=== PATIENT | male | born 1960 | race Caucasian/White ===

== ENCOUNTER → 2016-12-02 | Outpatient (CLI) | payer OTHER ==
[2015-09-21 13:00] VITALS: BP 124/75
[~2016-12-02] MED LIST: ALLO300T PO; COLC0.6T34 PO; CYCL10TA2 PO; ESCI10TA PO; HYDR-2672 PO; LOSA1TAB17 PO; NAPR375T3 PO
[2016-12-02 12:03] LABS: BASO # 0.1 x10^3/uL (0.0-0.2); BASO % 1 % (0-3); EOS % 2 % (0-3); HEMATOCRIT 48.5 % (39.0-53.0); HEMOGLOBIN 16.5 g/dL (13.0-17.5); LYMPH # 3.4 x10^3/uL (1.0-4.8); LYMPH % 39 % (24-48); MEAN CORPUSCULAR HEMOGLOBIN 31 pg (25-35); MEAN CORPUSCULAR HGB CONC 34 g/dL (31-37); MEAN CORPUSCULAR VOLUME 91 fL (79-100); MONO % 8 % (0-9); NEUT % 50 % (31-73); PLATELET COUNT 278 x10^3/uL (140-400); RED BLOOD COUNT 5.32 x10^6/uL (4.30-5.70); RED CELL DISTRIBUTION WIDTH 13.1 % (11.5-14.5); WHITE BLOOD COUNT 8.7 x10^3/uL (4.0-11.0)
[2016-12-02 12:18] LABS: ALBUMIN 3.9 g/dL (3.4-5.0); ALBUMIN/GLOBULIN RATIO 1.1 (1.0-1.7); CALCIUM 9.1 mg/dL (8.5-10.1); CREATININE 0.9 mg/dL (0.7-1.3); GFR 87.6; TOTAL BILIRUBIN 0.6 mg/dL (0.2-1.0); TOTAL PROTEIN 7.5 g/dL (6.4-8.2)
== END | disposition home or self-care (01) ==
LOC: LAB 11:36
PROVIDERS: ATTEND Internal Medicine
DX: I10 Essential (primary) hypertension (principal); F32.2 Major depressive disorder, single episode, severe without psychotic features; E78.5 Hyperlipidemia, unspecified
CPT/HCPCS: 36415; 80053; 80061; 84443; 85027; G0103

== ENCOUNTER → 2017-02-10 | Outpatient (CLI) | payer OTHER ==
[2015-09-21 13:00] VITALS: BP 124/75
--- NOTE | 2017-02-10 13:07 | RAD ---
Chest, 2 views, 02/10/2017: History: Dyspnea on exertion Comparison is made to a study from 08/15/2015. The heart size and pulmonary vascularity are normal. There is mild tortuosity of the thoracic aorta. No pulmonary infiltrates are seen. There is no evidence of pleural fluid. Minimal spurring is present in the spine. IMPRESSION: No acute cardiopulmonary abnormality is detected.
[2017-02-10 23:13] LABS: RHEUMATOID FACTOR <10.0 IU/mL (0.0-13.9)
== END | disposition home or self-care (01) ==
LOC: LAB 12:44
PROVIDERS: ATTEND Nurse Practitioner Adult Health
DX: R06.09 Other forms of dyspnea (principal)
CPT/HCPCS: 36415; 71020; 85651; 86431

== ENCOUNTER → 2017-05-05 | Outpatient (CLI) | payer OTHER ==
[2015-09-21 13:00] VITALS: BP 124/75
[~2017-05-05] MED LIST changes: -ESCI10TA PO; +ESCITALOPRAM OX10 MG PO; -HYDR-2672 PO; +HYDR-2766 PO
--- NOTE | 2017-05-05 14:12 | CARD ---
APPROVED REPORT PROCEDURE The patient underwent an Exercise Stress Test using the Mundo Protocol. Blood pressure, heart rate, a nd EKG were monitored. An Echocardiogram was performed by optical coating technician in four stages in quad fashion. At peak stress four se lected images were obtained and placed side by side with resting images for comparison. STRESS ECHO FINDINGS The resting Echocardiogram showed normal left ventricular contractility with an estimated Ejection Fr action of about 55 %. Normal augmentation of myocardial wall segments using a 16 segment model. Test Type: Exercise Stress Nurse/Tech: Malathi Pulido R.N. Test Indications: RAMIREZ Cardiac History and Allergies: SEE EMR Medications: SEE EMR Medical History: SEE EMR Resting ECG: SR Resting Heart Rate: 70 bpm Resting Blood Pressure: 141/84mmHg Pretest Chest Pain: No chest pain Nurse/Tech Notes S1S2, lungs CTA, denied chest pain or SOA. Consent: The procedure was explained to the patient in lay terms. Informed consent was witnessed. Ben eout was entered into [employer]. History and Stress Test performed by Malathi Pulido R.N. Stress Symptoms Extremely SOA at 3 minute john. POST EXERCISE Reason for Termination: Reached target heart rate Target HR: 140 Max HR: 145 bpm 88% of Maximum Predicted HR: 165 bpm Exercise duration: 4:05 min:sec, 2 Stage Exercise capacity: 7.0METs Max Blood Pressure: 175/63mmHg Blood Pressure response to exercise: Normal blood pressure response during stress. Heart Rate response to exercise: Normal Chest Pain: No. Arrhythmia: No. ST Change: No. INTERPRETATION Stress EKG Conclusion: Pt became extremely SOA at the 3 minute john. Reached target HR of 140 but was unable to maintain for longer than a minute or to continue to reach max HR of 165. Denied chest pain . Was slightly dizzy during recovery phase. The resting EKG showed a sinus rhythm with slight nonspecific ST segment changes. The stress EKG showed no significant change from baseline. No EKG evidence of stress-induced ischemia. <Conclusion> Limited exercise tolerance. No chest pain with exertion. No EKG evidence of stress-induced ischemia. Normal LV systolic function at rest. Normal left ventricular response to exertion with no regional wall motion abnormalities. No echocardiographic suggestion of stress-induced ischemia. Moderately low risk treadmill echo stress test with no EKG evidence of ischemia, normal LV function a t rest and with exertion but limited exercise tolerance secondary to shortness of breath.
== END | disposition home or self-care (01) ==
LOC: ECHO 11:51
PROVIDERS: ATTEND Internal Medicine Pulmonary Disease
DX: R06.02 Shortness of breath (principal)
CPT/HCPCS: 93017; 93350

== ENCOUNTER 2017-05-11 04:47 | Observation (INO) | payer OTHER ==
[~2017-05-11] VITALS: Ht 182.9 cm; Wt 125.6 kg
[2017-05-11] VITALS (16 sets, daily range): BP systolic 74–133; BP diastolic 46–88
--- NOTE | 2017-05-11 05:04 | PHYS DOC ---
Past Medical History Past Medical History: Hypertension, Other Additional Past Medical Histor: gout Past Surgical History: Other Additional Past Surgical Histo: stomach tumor/surgery Alcohol Use: None Drug Use: None Adult General Chief Complaint Chief Complaint: CHEST PAIN HPI HPI Patient is a 56 year old male who presents with who presents with left-sided chest pain for the past day and a half that has progressively gotten worse. Patient states that a week ago his stress test that was unremarkable. Pt states the chest pain is not exertional. Patient states the pain as a heaviness that radiates to the left shoulder. Patient denies any shortness of breath. Patient denies any nausea/vomiting/diarrhea. Patient denies any fevers. Patient is no other complaints. Review of Systems Review of Systems GEN: Denies fevers, chills, sweats HEENT: Denies blurred vision, sore throat CV: chest pain RESP: Denies shortness of air, cough GI: Denies n/v/d NEURO: Denies confusion, dizziness MSK: Denies weakness, joint pain/swelling Current Medications Current Medications Current Medications Medications (Trade) Dose Ordered Sig/Madhavi Start Time Stop Time Status Last Admin Dose Admin Aspirin (Children'S Aspirin) 324 mg 1X ONCE 05/11/17 05:15 05/11/17 05:16 DC 05/11/17 05:07 324 MG Info (Do NOT chart on this entry -- for MONITORING) 1 each PRN DAILY PRN 05/11/17 05:30 05/13/17 05:29 Iohexol (Omnipaque 300 Mg/ml) 75 ml 1X ONCE 05/11/17 05:30 05/11/17 05:31 DC 05/11/17 05:50 75 ML Nitroglycerin (Nitrostat) 0.4 mg PRN Q5MIN PRN 05/11/17 05:15 05/11/17 05:24 0.4 MG Allergies Allergies Allergies Coded Allergies Type Severity Reaction Last Updated Verified No Known Drug Allergies 08/15/15 No Physical Exam Physical Exam GEN.: No apparent distress. Alert and oriented. HEENT: Head is normocephalic, atraumatic NECK: Supple. LUNGS: CTAB. HEART: RRR, S1, S2 present. Peripheral pulses intact ABDOMEN: Soft, nontender. Positive bowel sounds. EXTREMITIES: Without any cyanosis. NEUROLOGIC: Normal speech, normal tone PSYCHIATRIC: Normal affect, normal mood. SKIN: No ulcerations Current Patient Data Vital Signs Vital Signs Date Time Temp Pulse Resp B/P (MAP) Pulse Ox O2 Delivery O2 Flow Rate FiO2 05/11/17 05:24 64 121/75 05/11/17 04:50 97.5 20 96 Room Air 97.5 Lab Values Laboratory Tests Test 05/11/17 05:00 White Blood Count 7.5 x10^3/uL (4.0-11.0) Red Blood Count 5.07 x10^6/uL (4.30-5.70) Hemoglobin 16.1 g/dL (13.0-17.5) Hematocrit 45.0 % (39.0-53.0) Mean Corpuscular Volume 89 fL (79-100) Mean Corpuscular Hemoglobin 32 pg (25-35) Mean Corpuscular Hemoglobin Concent 36 g/dL (31-37) Red Cell Distribution Width 13.5 % (11.5-14.5) Platelet Count 280 x10^3/uL (140-400) Neutrophils (%) (Auto) 40 % (31-73) Lymphocytes (%) (Auto) 46 % (24-48) Monocytes (%) (Auto) 10 % (0-9) H Eosinophils (%) (Auto) 3 % (0-3) Basophils (%) (Auto) 1 % (0-3) Neutrophils # (Auto) 3.0 x10^3uL (1.8-7.7) Lymphocytes # (Auto) 3.4 x10^3/uL (1.0-4.8) Monocytes # (Auto) 0.7 x10^3/uL (0.0-1.1) Eosinophils # (Auto) 0.2 x10^3/uL (0.0-0.7) Basophils # (Auto) 0.1 x10^3/uL (0.0-0.2) Sodium Level 140 mmol/L (136-145) Potassium Level 4.1 mmol/L (3.5-5.1) Chloride Level 102 mmol/L (98-107) Carbon Dioxide Level 28 mmol/L (21-32) Anion Gap 10 (6-14) Blood Urea Nitrogen 16 mg/dL (8-26) Creatinine 0.9 mg/dL (0.7-1.3) Estimated GFR (Cockcroft-Gault) 87.6 BUN/Creatinine Ratio 18 (6-20) Glucose Level 127 mg/dL (70-99) H Calcium Level 8.8 mg/dL (8.5-10.1) Total Bilirubin 0.4 mg/dL (0.2-1.0) Aspartate Amino Transferase (AST) 14 U/L (15-37) L Alanine Aminotransferase (ALT) 31 U/L (16-63) Alkaline Phosphatase 78 U/L (46-116) Troponin I Quantitative < 0.017 ng/mL (0.000-0.055) Total Protein 7.4 g/dL (6.4-8.2) Albumin 3.7 g/dL (3.4-5.0) Albumin/Globulin Ratio 1.0 (1.0-1.7) Laboratory Tests 05/11/17 05:00 Laboratory Tests 05/11/17 05:00 EKG EKG 0458: EKG shows normal sinus rhythm rate of 63 no STEMI 0550: EKG shows normal sinus rhythm rate of 59 no STEMI [] Radiology/Procedures Radiology/Procedures CXR NAD[] Course & Med Decision Making Course & Med Decision Making Pertinent Labs and Imaging studies reviewed. (See chart for details) ED course: Patient was seen and examined in the emergency room upon arrival a cardiac workup and a CT angiogram of the chest was ordered 0557: On reexamination the patient is still having some left-sided chest pain 0612: Discussed CC/HP/PMH with Dr. Cunningham and recommends admit [] MDM: After reviewing the chart, CC/HPI/PMH, physical exam, [lab results], [ radiological results], I do not believe the patient having a STEMI, PE, thoracic aortic dissection. On reevaluation the patient still having left-sided chest heaviness and pressure therefore we'll admit the patient for cardiac observation. [] Dragon Disclaimer Dragon Disclaimer This electronic medical record was generated, in whole or in part, using a voice recognition dictation system. Departure Departure Impression: Primary Impression: Chest pain Disposition: ADMITTED INPATIENT Admitting Physician: Other (Dr. Cunningham) Condition: STABLE Referrals: MATTHEW TODD MD (PCP) Problem Qualifiers Primary Impression: Chest pain Chest pain type: unspecified Qualified Codes: R07.9 - Chest pain, unspecified JASON DAMON DO May 11, 2017 05:04
[2017-05-11 05:12] LABS: BASO # 0.1 x10^3/uL (0.0-0.2); BASO % 1 % (0-3); EOS % 3 % (0-3); HEMOGLOBIN 16.1 g/dL (13.0-17.5); LYMPH # 3.4 x10^3/uL (1.0-4.8); LYMPH % 46 % (24-48); MEAN CORPUSCULAR HEMOGLOBIN 32 pg (25-35); MEAN CORPUSCULAR HGB CONC 36 g/dL (31-37); MEAN CORPUSCULAR VOLUME 89 fL (79-100); MONO % 10 % (0-9); NEUT % 40 % (31-73); PLATELET COUNT 280 x10^3/uL (140-400); RED BLOOD COUNT 5.07 x10^6/uL (4.30-5.70); RED CELL DISTRIBUTION WIDTH 13.5 % (11.5-14.5); WHITE BLOOD COUNT 7.5 x10^3/uL (4.0-11.0)
[2017-05-11] MEDS ORDERED: ASPIRIN CHEWABLE 81 MG TABLET. PO ONE (05:15)
[2017-05-11] MEDS: NITROGLYCERIN SUBLINGUAL 0.4 MG BOTTLE OF 25. SL PRN ×3 (05:16→06:16)
[2017-05-11 05:18] LABS: CALCIUM 8.8 mg/dL (8.5-10.1); CREATININE 0.9 mg/dL (0.7-1.3); GFR 87.6; POTASSIUM 4.1 mmol/L (3.5-5.1)
[2017-05-11 05:24] LABS: ALBUMIN 3.7 g/dL (3.4-5.0); TOTAL BILIRUBIN 0.4 mg/dL (0.2-1.0); TOTAL PROTEIN 7.4 g/dL (6.4-8.2)
[2017-05-11] MEDS ORDERED: CONTRAST GIVEN MC PRN ×2 (05:30→15:15)
[2017-05-11] MEDS ORDERED: IOHEXOL 300 MG/ML 75 ML VIAL IV ONE (05:30)
--- NOTE | 2017-05-11 06:16 | RAD ---
CT angiogram of the chest pre and post contrast: Reason for examination: Chest pain. Helical images were obtained through the chest with intravenous administration of 75 cc Omnipaque 300 using PE protocol. 3-D MIPS reconstruction was performed in sagittal and coronal planes. Exposure: One or more of the following individualized dose reduction techniques were utilized for this examination: 1. Automated exposure control 2. Adjustment of the mA and/or kV according to patient size 3. Use of iterative reconstruction technique. No abnormality seen at the thyroid gland. The trachea and mainstem bronchi show no intraluminal lesions. No abnormality seen at the esophagus. The thoracic aorta shows no aneurysmal dilatation or dissection. The heart size is normal with no pericardial effusion. There is no evidence of pulmonary embolus. The lung tavarez show some mild elevation of the right hemidiaphragm. No acute infiltrates or pleural effusions are evident. No acute bony abnormalities are evident. No abnormalities seen at the liver, spleen, adrenal glands, pancreas, gallbladder or visualized portions of the kidneys. IMPRESSION: No evidence of pulmonary embolus. No acute abnormality evident in the chest. Electronically signed by: Quiana Benitez MD (05/11/2017 6:13 AM) [id number]
[2017-05-11] MEDS ORDERED: MORPHINE SULFATE 4 MG/ML DISP.SYRIN. IV PRN (06:30)
[2017-05-11] MEDS ORDERED: ONDANSETRON PF 4 MG/2 ML VIAL. IV PRN (06:30)
[2017-05-11] MEDS ORDERED: NITROGLYCERIN SUBLINGUAL 0.4 MG BOTTLE OF 25. SL PRN (06:30)
--- NOTE | 2017-05-11 08:21 | EKG ---
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
--- NOTE | 2017-05-11 08:21 | EKG ---
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
--- NOTE | 2017-05-11 08:32 | RAD ---
Portable chest, 05/11/2017: History: Chest pain Comparison is made to a study from 02/10/2017. The heart size and pulmonary vascularity are normal. No pulmonary infiltrates are seen. There is no evidence of pleural fluid. IMPRESSION: No acute cardiopulmonary abnormality is detected.
--- NOTE | 2017-05-11 09:41 | PDOC2 ---
GOPAL MERCADO BLUE CRABBER 05/11/17 0941: CARDIAC CONSULT DATE OF CONSULT Date of Consult DATE: 05/11/17 TIME: 09:35 REASON FOR CONSULT Reason for Consult: Chest pain REFERRING PHYSICIAN Referring Physician: Cal SOURCE Source: Chart review, Patient HISTORY OF PRESENT ILLNESS HISTORY OF PRESENT ILLNESS This is a pleasant 56 yo male admitted for complains of chest pain. Reports that in the last month he has been having left chest under his lower rib cage pain that is nagging, sharp and shooting and increased with positional changes. This sometimes affects him going after stairs making a little winded when he reaches the top of the stairs. Sometimes the pain does get bad that he sweats significantly. He works that requires frequent ambulation but no heavy lifting and no complains of activity tolerance. Denies any palpitations, nausea, heartburn, jaw pain. In addition he does have some numbness to his left arm. His chest pain got really worse yesterday lasting all day and he could not seem to get comfortable. I did press on his left chest and this pain is reproducible and was even more intense when I sat him up and this was localized without radiation. PAST MEDICAL HISTORY Cardiovascular: HTN, Hyperlipidemia Pulmonary: Other (VARINDER, not using CPAP wrong fit reported) GI: Other (stomach tumor) Heme/Onc: Cancer (chest wall lyphoma) Hepatobiliary: No pertinent hx Psych: Anxiety Musculoskeletal: Osteoarthritis Rheumatologic: Gout Infectious disease: No pertinent hx ENT: No pertinent hx Renal/: No pertinent hx Endocrine: No pertinent hx Dermatology: No pertinent hx PAST SURGICAL HISTORY Past Surgical History: Other (partial gastric resection due to tumor. Abdominal tumor lesion removal) FAMILY HISTORY Family History: Coronary Artery Disease (mother) SOCIAL HISTORY Smoke: No ALCOHOL: occassional Drugs: None Lives: with Family CURRENT MEDICATIONS CURRENT MEDICATIONS Current Medications Medications (Trade) Dose Ordered Sig/Madhavi Route PRN Reason Start Time Stop Time Status Last Admin Dose Admin Aspirin (Children'S Aspirin) 324 mg 1X ONCE PO 05/11/17 05:15 05/11/17 05:16 DC 05/11/17 05:07 Nitroglycerin (Nitrostat) 0.4 mg PRN Q5MIN PRN SL CHEST PAIN 05/11/17 05:15 05/11/17 06:24 DC 05/11/17 06:16 Iohexol (Omnipaque 300 Mg/ml) 75 ml 1X ONCE IV 05/11/17 05:30 05/11/17 05:31 DC 05/11/17 05:50 ALLERGIES ALLERGIES: Coded Allergies: No Known Drug Allergies (Unverified , 08/15/15) ROS Review of System 14 point ROS evaluated with pertinent positives noted per HPI PHYSICAL EXAM General: Alert, Oriented X3, Cooperative, No acute distress HEENT: Atraumatic, Mucous membr. moist/pink Lungs: Clear to auscultation, Normal air movement Heart: Regular rate (SR), Normal S1, Normal S2 Abdomen: Soft, No tenderness Extremities: No cyanosis, No edema Skin: No breakdown, No significant lesion Neuro: Normal speech, Sensation intact Psych/Mental Status: Mental status NL, Mood NL MUSCULOSKELETAL: Osteoarthritic changes both hands VITALS VITALS Vital Signs Date Time Temp Pulse Resp B/P (MAP) Pulse Ox O2 Delivery O2 Flow Rate FiO2 05/11/17 06:36 51 108/63 (78) 96 Room Air 05/11/17 04:50 97.5 20 97.5 LABS Lab: Laboratory Tests Test 05/11/17 05:00 White Blood Count 7.5 x10^3/uL (4.0-11.0) Red Blood Count 5.07 x10^6/uL (4.30-5.70) Hemoglobin 16.1 g/dL (13.0-17.5) Hematocrit 45.0 % (39.0-53.0) Mean Corpuscular Volume 89 fL (79-100) Mean Corpuscular Hemoglobin 32 pg (25-35) Mean Corpuscular Hemoglobin Concent 36 g/dL (31-37) Red Cell Distribution Width 13.5 % (11.5-14.5) Platelet Count 280 x10^3/uL (140-400) Neutrophils (%) (Auto) 40 % (31-73) Lymphocytes (%) (Auto) 46 % (24-48) Monocytes (%) (Auto) 10 % (0-9) Eosinophils (%) (Auto) 3 % (0-3) Basophils (%) (Auto) 1 % (0-3) Neutrophils # (Auto) 3.0 x10^3uL (1.8-7.7) Lymphocytes # (Auto) 3.4 x10^3/uL (1.0-4.8) Monocytes # (Auto) 0.7 x10^3/uL (0.0-1.1) Eosinophils # (Auto) 0.2 x10^3/uL (0.0-0.7) Basophils # (Auto) 0.1 x10^3/uL (0.0-0.2) Sodium Level 140 mmol/L (136-145) Potassium Level 4.1 mmol/L (3.5-5.1) Chloride Level 102 mmol/L (98-107) Carbon Dioxide Level 28 mmol/L (21-32) Anion Gap 10 (6-14) Blood Urea Nitrogen 16 mg/dL (8-26) Creatinine 0.9 mg/dL (0.7-1.3) Estimated GFR (Cockcroft-Gault) 87.6 BUN/Creatinine Ratio 18 (6-20) Glucose Level 127 mg/dL (70-99) Calcium Level 8.8 mg/dL (8.5-10.1) Total Bilirubin 0.4 mg/dL (0.2-1.0) Aspartate Amino Transf (AST/SGOT) 14 U/L (15-37) Alanine Aminotransferase (ALT/SGPT) 31 U/L (16-63) Alkaline Phosphatase 78 U/L (46-116) Troponin I Quantitative < 0.017 ng/mL (0.000-0.055) Total Protein 7.4 g/dL (6.4-8.2) Albumin 3.7 g/dL (3.4-5.0) Albumin/Globulin Ratio 1.0 (1.0-1.7) ECHOCARDIOGRAM ECHOCARDIOGRAM <Conclusion> The left ventricle is normal size. There is normal left ventricular wall thickness. The left ventricular systolic function is normal and the ejection fraction is within normal range. The Ejection Fraction is 50-55%. The diastolic function is normal. There is no pericardial effusion. There is no mitral stenosis or regurgitation. There is no aortic stenosis or regurgitation. The left atrium is of normal size. Right ventricle is mildly enlarged. Doppler and Color Flow revealed trace to mild tricuspid regurgitation. The PA pressure was estimated at 27 mmHg. The pulmonic valve is normal. DATE: 08/15/151940 STRESS TEST STRESS TEST <Conclusion> Limited exercise tolerance. No chest pain with exertion. No EKG evidence of stress-induced ischemia. Normal LV systolic function at rest. Normal left ventricular response to exertion with no regional wall motion abnormalities. No echocardiographic suggestion of stress-induced ischemia. Moderately low risk treadmill echo stress test with no EKG evidence of ischemia , normal LV function at rest and with exertion but limited exercise tolerance secondary to shortness of breath. DATE: 05/05/17 1411 Conclusion MPI 1. No electrocardiographic changes suggestive of myocardial ischemia with pharmacological stress. 2. No significant perfusion defects to suggest myocardial ischemia or scar. 3. Normal wall motion and wall thickening with an ejection fraction of 73%. 4. Scan indicates low risk for future cardiac events. DATE: 08/17/15 1116 ASSESSMENT/PLAN ASSESSMENT/PLAN 1. Atypical chest pain: Reproducible with palpation and positional changes. Normal troponin, EKG NSR. Stress echo unremarkable 05/05/2017. Suspect MSK but GI could not be ruled out 2. HTN 3. DLP 4. Anxiety 5. VARINDER: reports wrong fit CPAP 6. Hx of stomach tumor requiring surgical resection: remotely and no recent EGD Recommendations 1. Lipids, trend troponin continue BP meds 2. Trend troponin 3. No further cardiac workup at this time. May need to see GI again. 4. Consider lidocaine transdermal, PENNSAID. defer to PCP Problems: SHELDON MILLER MD 05/11/17 1443: CARDIAC CONSULT ALLERGIES ALLERGIES: Coded Allergies: No Known Drug Allergies (Unverified , 08/15/15) ASSESSMENT/PLAN ASSESSMENT/PLAN Pt. seen and examined. Patient has atypical chest pain. Concerning features include exertional chest pain that was relieved with two NTG upon arrival to the ER. He also has pain with movement. Given his risk factors including, obesity (BMI 38.9), HTN, prior tobacco use, DLP and VARINDER with family history of CAD, it was would appropriate to rule out ischemic heart disease. Given that his pretest probability is high, will proceed with cath. Discussed r/b/a to cath with patient and . They understand and are willing to proceed. Thanks for consultation. Problems: GOPAL MERCADO APRN May 11, 2017 09:41 SHELDON MLILER MD May 11, 2017 14:43
[2017-05-11 10:16] LABS: CHOLESTEROL/HDL RATIO 5.9
[2017-05-11] MEDS: LIDOCAINE (700MG/PATCH) PATCH. TD SCH (10:47)
[2017-05-11] MEDS ORDERED: HYDR200T5 PO (10:57)
[2017-05-11] MEDS ORDERED: SUMA100T4 PO (10:57)
[2017-05-11] MEDS: ALLOPURINOL 300 MG TABLET. PO SCH (11:25)
--- NOTE | 2017-05-11 11:35 | HP ---
ADMIT DATE: 05/11/2017 CHIEF COMPLAINT: Left-sided chest pain. HISTORY OF PRESENT ILLNESS: The patient is a 56-year-old gentleman with past medical history of hypertension, diabetes who presented to the hospital with left-sided chest pain. He relates this actually started several days ago. It is sharp, stabbing, in the lateral lower ribcage area, worse with deep breathing. Nothing seems to help, although the nitro he received in the Emergency Room did alleviate the pain somewhat. He denies any associated diaphoresis, nausea, vomiting. Does have difficulty taking a deep breath due to the pain. Of note, he had developed increasing shortness of breath over the past few weeks and actually had been seen by Pulmonary and had PFTs done last week, with results to be shared with him tomorrow. He also underwent a stress echo last week to evaluate his shortness of breath. In the Emergency Room, a CTA was obtained, which did not show any PE or any other abnormalities in the chest. He is now admitted for further workup. PAST MEDICAL HISTORY: Hypertension. PAST SURGICAL HISTORY: Lipoma removal of the left lower ribcage several years ago. FAMILY HISTORY: Positive for hypertension, diabetes, heart disease. 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 ALLERGIES: No known drug allergies. MEDICATIONS: MAR reconciled with home medications. REVIEW OF SYSTEMS: Positive as per HPI. He denies any fevers, chills, headaches, any cough, nausea, vomiting, diarrhea. Rest of organ system review does not reveal any other symptoms. PHYSICAL EXAMINATION: VITAL SIGNS: Show blood pressure of 108/63, heart rate of 51, respiratory rate at 18. He is afebrile. GENERAL: This is a 56-year-old obese gentleman, alert and oriented, in no acute distress. HEENT: Shows no scleral icterus. NECK: Supple, without any lymphadenopathy. LUNGS: Clear bilaterally. HEART: Regular rate and rhythm without any murmurs. ABDOMEN: Has positive bowel sounds, soft, nontender including left upper quadrant. EXTREMITIES: Show no edema. SKIN: Warm, soft and dry. LABORATORY DATA: CBC from today shows a WBC of 7.5, hemoglobin 16, platelets of 280. Chemistries with a BUN and creatinine of 16 and 0.9, normal electrolytes, glucose at 127. LFTs within normal. Lipid profile with triglycerides of 326, cholesterol at 148, and LDL at 58. IMAGING STUDIES: CTA of the chest shows no evidence of pulmonary embolus, no acute abnormality in the chest. ASSESSMENT AND PLAN: The patient is a 56-year-old gentleman with chronic shortness of breath for which he has been undergoing outpatient workup. We will obtain Cardiology and Pulmonology consults to obtain results of studies. So far, stress echo appears to be within normal limits. His pain is more reminiscent of chest wall pain. The skin over the area is completely intact, although early onset of shingles cannot be ruled out. Other etiologies may be GI related. We will await Pulmonary and Cardiology input first before obtaining further consults. In the meantime, we will continue his home medications. We will start him on H2 blockers as well. For the pain, he will receive lidocaine patch, has morphine available already. NAHUN WILLIAM MD DR: ALCIRA/nts JOB#: [id number] / [id number] DONALD
[2017-05-11] MEDS: LOSARTAN POTASSIUM 50 MG TABLET. PO SCH (12:03)
[2017-05-11 14:19] LABS: BILIRUBIN,URINE NEGATIVE (NEG); GLUCOSE,URINE NEGATIVE (NEG); NITRITE,URINE NEGATIVE (NEG); PH,URINE 5.5; PROTEIN,URINE NEGATIVE (NEG-TRACE); UROBILINOGEN,URINE 0.2 mg/dL (0.2 mg/dL)
[2017-05-11] MEDS ORDERED: IOHEXOL 300 MG/ML 100ML VIAL. ONE (14:22)
[2017-05-11] MEDS ORDERED: LIDOCAINE 2% 20 ML VIAL. ONE (14:22)
[2017-05-11 14:39] LABS: BACTERIA,URINE 0 /HPF (0-FEW); RBC,URINE 0 /HPF (0-2); WBC,URINE 0 /HPF (0-4)
--- NOTE | 2017-05-11 14:44 | PDOC ---
MODERATE SEDATION ASSESSMENT RISKS/ALTERNATIVES Risks/Alternatives Risks and alternatives of this type of sedation and procedure discussed with: RISK/ALTERNATIVES: Patient H & P ON CHART H & P H & P on chart and reviewed for co-morbid conditions and appropriate labs. H&P ON CHART: Yes STATUS PREG STATUS ASSESSED: N/A MEDS/ALLERGIES REVIEWED Meds/Allergies Reviewed Medications and Allergies including time and route of recently administered narcotics and sedatives. MEDS/ALLERGIES REVIEWED: Yes ASA RATING ASA RATING: III AIRWAY ASSESSMENT Airway Assessment Airway patency, oral function limitations, presence of caps, crowns, dentures, partials, and ability to extend neck assessed. AIRWAY ASSESSMENT: Yes MALLAMPATI SCORE MALLAMPATI SCORE: III PRE-SEDATION ASSESSMENT PRE-SEDATION ASSESSMENT: Yes SHELDON MILLER MD May 11, 2017 14:44
[2017-05-11] MEDS ORDERED: fentaNYL PF VIAL 100 MCG/2 ML VIAL ONE (14:45)
[2017-05-11] MEDS ORDERED: NITROGLYCERIN 200 MCG/2 ML SYRINGE FOR CATH/VASC LAB. ONE (14:45)
[2017-05-11] MEDS ORDERED: HEPARIN for IV BOLUS 10,000 UNIT/10 ML VIAL. ONE (14:45)
[2017-05-11] MEDS ORDERED: MIDAZOLAM HCL/PF 2 MG/2 ML VIAL. ONE (14:45)
[2017-05-11] MEDS ORDERED: VERAPAMIL 5 MG/2 ML VIAL. ONE (14:45)
[2017-05-11] MEDS ORDERED: HEPARIN for IV BOLUS 10,000 UNIT/10 ML VIAL. IART ONE (15:00)
[2017-05-11] MEDS ORDERED: LIDOCAINE 2% 20 ML VIAL. IJ ONE (15:00)
[2017-05-11] MEDS ORDERED: MIDAZOLAM HCL/PF 2 MG/2 ML VIAL. IV ONE (15:00)
[2017-05-11] MEDS ORDERED: NITROGLYCERIN 200 MCG/2 ML SYRINGE FOR CATH/VASC LAB. IART ONE (15:00)
[2017-05-11] MEDS ORDERED: VERAPAMIL 5 MG/2 ML VIAL. IART ONE (15:00)
[2017-05-11] MEDS ORDERED: fentaNYL PF VIAL 100 MCG/2 ML VIAL IV ONE (15:00)
[2017-05-11] MEDS ORDERED: IOHEXOL 300 MG/ML 100ML VIAL. IART ONE (15:00)
--- NOTE | 2017-05-11 18:47 | PDOC ---
PULMONARY PROGRESS NOTES Vitals Vital Signs Date Time Temp Pulse Resp B/P (MAP) Pulse Ox O2 Delivery O2 Flow Rate FiO2 05/11/17 17:15 64 19 97 Room Air 05/11/17 17:00 2.0 05/11/17 15:06 107/71 05/11/17 13:20 98.0 98.0 Labs Laboratory Tests Test 05/11/17 05:00 05/11/17 05:08 05/11/17 12:15 White Blood Count 7.5 x10^3/uL (4.0-11.0) Red Blood Count 5.07 x10^6/uL (4.30-5.70) Hemoglobin 16.1 g/dL (13.0-17.5) Hematocrit 45.0 % (39.0-53.0) Mean Corpuscular Volume 89 fL (79-100) Mean Corpuscular Hemoglobin 32 pg (25-35) Mean Corpuscular Hemoglobin Concent 36 g/dL (31-37) Red Cell Distribution Width 13.5 % (11.5-14.5) Platelet Count 280 x10^3/uL (140-400) Neutrophils (%) (Auto) 40 % (31-73) Lymphocytes (%) (Auto) 46 % (24-48) Monocytes (%) (Auto) 10 % (0-9) Eosinophils (%) (Auto) 3 % (0-3) Basophils (%) (Auto) 1 % (0-3) Neutrophils # (Auto) 3.0 x10^3uL (1.8-7.7) Lymphocytes # (Auto) 3.4 x10^3/uL (1.0-4.8) Monocytes # (Auto) 0.7 x10^3/uL (0.0-1.1) Eosinophils # (Auto) 0.2 x10^3/uL (0.0-0.7) Basophils # (Auto) 0.1 x10^3/uL (0.0-0.2) Sodium Level 140 mmol/L (136-145) Potassium Level 4.1 mmol/L (3.5-5.1) Chloride Level 102 mmol/L (98-107) Carbon Dioxide Level 28 mmol/L (21-32) Anion Gap 10 (6-14) Blood Urea Nitrogen 16 mg/dL (8-26) Creatinine 0.9 mg/dL (0.7-1.3) Estimated GFR (Cockcroft-Gault) 87.6 BUN/Creatinine Ratio 18 (6-20) Glucose Level 127 mg/dL (70-99) Calcium Level 8.8 mg/dL (8.5-10.1) Total Bilirubin 0.4 mg/dL (0.2-1.0) Aspartate Amino Transf (AST/SGOT) 14 U/L (15-37) Alanine Aminotransferase (ALT/SGPT) 31 U/L (16-63) Alkaline Phosphatase 78 U/L (46-116) Troponin I Quantitative < 0.017 ng/mL (0.000-0.055) < 0.017 ng/mL (0.000-0.055) Total Protein 7.4 g/dL (6.4-8.2) Albumin 3.7 g/dL (3.4-5.0) Albumin/Globulin Ratio 1.0 (1.0-1.7) Triglycerides Level 326 mg/dL (0-150) Cholesterol Level 148 mg/dL (0-200) LDL Cholesterol, Calculated 58 mg/dL (0-100) VLDL Cholesterol, Calculated 65 mg/dL (0-40) Non-HDL Cholesterol Calculated 123 mg/dL (0-129) HDL Cholesterol 25 mg/dL (40-60) Cholesterol/HDL Ratio 5.9 Urine Collection Type Unknown Urine Color Yellow Urine Clarity Clear Urine pH 5.5 Urine Specific [place] >=1.030 Urine Protein Negative mg/dL (NEG-TRACE) Urine Glucose (UA) Negative mg/dL (NEG) Urine Ketones (Stick) Negative mg/dL (NEG) Urine Blood Negative (NEG) Urine Nitrite Negative (NEG) Urine Bilirubin Negative (NEG) Urine Urobilinogen Dipstick 0.2 mg/dL (0.2 mg/dL) Urine Leukocyte Esterase Negative (NEG) Urine RBC 0 /HPF (0-2) Urine WBC 0 /HPF (0-4) Urine Bacteria 0 /HPF (0-FEW) Urine Mucus Mod /LPF Creatine Kinase 103 U/L (39-308) Laboratory Tests Test 05/11/17 05:00 05/11/17 05:08 05/11/17 12:15 White Blood Count 7.5 x10^3/uL (4.0-11.0) Red Blood Count 5.07 x10^6/uL (4.30-5.70) Hemoglobin 16.1 g/dL (13.0-17.5) Hematocrit 45.0 % (39.0-53.0) Mean Corpuscular Volume 89 fL (79-100) Mean Corpuscular Hemoglobin 32 pg (25-35) Mean Corpuscular Hemoglobin Concent 36 g/dL (31-37) Red Cell Distribution Width 13.5 % (11.5-14.5) Platelet Count 280 x10^3/uL (140-400) Neutrophils (%) (Auto) 40 % (31-73) Lymphocytes (%) (Auto) 46 % (24-48) Monocytes (%) (Auto) 10 % (0-9) Eosinophils (%) (Auto) 3 % (0-3) Basophils (%) (Auto) 1 % (0-3) Neutrophils # (Auto) 3.0 x10^3uL (1.8-7.7) Lymphocytes # (Auto) 3.4 x10^3/uL (1.0-4.8) Monocytes # (Auto) 0.7 x10^3/uL (0.0-1.1) Eosinophils # (Auto) 0.2 x10^3/uL (0.0-0.7) Basophils # (Auto) 0.1 x10^3/uL (0.0-0.2) Sodium Level 140 mmol/L (136-145) Potassium Level 4.1 mmol/L (3.5-5.1) Chloride Level 102 mmol/L (98-107) Carbon Dioxide Level 28 mmol/L (21-32) Anion Gap 10 (6-14) Blood Urea Nitrogen 16 mg/dL (8-26) Creatinine 0.9 mg/dL (0.7-1.3) Estimated GFR (Cockcroft-Gault) 87.6 BUN/Creatinine Ratio 18 (6-20) Glucose Level 127 mg/dL (70-99) Calcium Level 8.8 mg/dL (8.5-10.1) Total Bilirubin 0.4 mg/dL (0.2-1.0) Aspartate Amino Transf (AST/SGOT) 14 U/L (15-37) Alanine Aminotransferase (ALT/SGPT) 31 U/L (16-63) Alkaline Phosphatase 78 U/L (46-116) Troponin I Quantitative < 0.017 ng/mL (0.000-0.055) < 0.017 ng/mL (0.000-0.055) Total Protein 7.4 g/dL (6.4-8.2) Albumin 3.7 g/dL (3.4-5.0) Albumin/Globulin Ratio 1.0 (1.0-1.7) Triglycerides Level 326 mg/dL (0-150) Cholesterol Level 148 mg/dL (0-200) LDL Cholesterol, Calculated 58 mg/dL (0-100) VLDL Cholesterol, Calculated 65 mg/dL (0-40) Non-HDL Cholesterol Calculated 123 mg/dL (0-129) HDL Cholesterol 25 mg/dL (40-60) Cholesterol/HDL Ratio 5.9 Urine Collection Type Unknown Urine Color Yellow Urine Clarity Clear Urine pH 5.5 Urine Specific [place] >=1.030 Urine Protein Negative mg/dL (NEG-TRACE) Urine Glucose (UA) Negative mg/dL (NEG) Urine Ketones (Stick) Negative mg/dL (NEG) Urine Blood Negative (NEG) Urine Nitrite Negative (NEG) Urine Bilirubin Negative (NEG) Urine Urobilinogen Dipstick 0.2 mg/dL (0.2 mg/dL) Urine Leukocyte Esterase Negative (NEG) Urine RBC 0 /HPF (0-2) Urine WBC 0 /HPF (0-4) Urine Bacteria 0 /HPF (0-FEW) Urine Mucus Mod /LPF Creatine Kinase 103 U/L (39-308) Medications Active Scripts Medications Dose Route/Sig Max Daily Dose Days Date Category Sumatriptan Succinate 100 Mg Tablet 50 Mg PO ONCE PRN 05/11/17 Reported Hydroxychloroquine Sulfate 200 Mg Tablet 200 Mg PO DAILY 05/11/17 Reported Escitalopram Oxalate 10 Mg Tablet 1 Tab PO DAILY 08/10/16 Reported Cyclobenzaprine Hcl 10 Mg Tablet 1 Tab PO HS 08/10/16 Reported Hydrocodone-Apap 10-325 (Hydrocodone Bit/Acetaminophen) 1 Each Tablet 1 Tab PO PRN Q6HRS PRN 08/15/15 Reported Losartan-Hctz 100-25 Mg Tab (Losartan/Hydrochlorothiazide) 1 Each Tablet Tab PO DAILY 08/15/15 Reported Impression . FULL CONSULT DICTATED D/C IN AM OK RX FOR PRN ALBUTEROL AND PEPCID QHS FOLLOW UP IN OFFICE WITH DR WILLIS IN JUN THANKS TAMMY SOLIS MD May 11, 2017 18:46
[2017-05-11] MEDS: oxyCODONE/APAP 7.5/325 1 TAB TABLET PO PRN (20:35)
[2017-05-12] MEDS: ALBUTEROL SULFATE 2.5 MG/3 ML NEBU. IH SCH ×3 (00:52→12:00)
[2017-05-12] MEDS: oxyCODONE/APAP 7.5/325 1 TAB TABLET PO PRN ×2 (01:50→06:27)
[2017-05-12 03:00] VITALS: BP 126/81
[2017-05-12 05:39] LABS: BASO % 0 % (0-3); EOS % 2 % (0-3); HEMATOCRIT 44.8 % (39.0-53.0); HEMOGLOBIN 15.2 g/dL (13.0-17.5); LYMPH # 3.3 x10^3/uL (1.0-4.8); LYMPH % 39 % (24-48); MEAN CORPUSCULAR HEMOGLOBIN 31 pg (25-35); MEAN CORPUSCULAR HGB CONC 34 g/dL (31-37); MEAN CORPUSCULAR VOLUME 92 fL (79-100); MONO % 9 % (0-9); NEUT % 50 % (31-73); PLATELET COUNT 274 x10^3/uL (140-400); RED BLOOD COUNT 4.88 x10^6/uL (4.30-5.70); RED CELL DISTRIBUTION WIDTH 13.9 % (11.5-14.5); WHITE BLOOD COUNT 8.6 x10^3/uL (4.0-11.0)
--- NOTE | 2017-05-12 05:39 | CONS ---
DATE OF CONSULTATION: 05/11/2017 ATTENDING PHYSICIAN: Ritu Cunningham MD DICTATING PHYSICIAN: Tammy Solis MD REASON FOR CONSULTATION: The patient seen in pulmonary consultation at the request of Dr. Cunningham for dyspnea, cough and chest pain. HISTORY OF PRESENT ILLNESS: The patient is a 56-year-old gentleman that was initially seen in the office by Dr. Bhatia with shortness of breath and some chest discomfort and diaphoresis. There was some concern about the possibility of cardiac origin. The patient underwent a stress echo which revealed poor exercise tolerance. His ejection fraction was normal. There was no wall motion abnormality. PFTs were fairly normal. The patient was due to follow up in the office. He presented to the Emergency Room and was admitted with chest pain. He has a cough, mostly nonproductive and shortness of breath with exertion. His pain is localized to the left side. Earlier today he underwent a cardiac catheterization. I was asked to see him in consultation for further evaluation and management. His cardiac catheterization report is pending. Apparently, it does not reveal any significant disease. The patient also underwent a CT chest. CT chest was for pulmonary embolism. There was no evidence of PE. PAST MEDICAL AND PAST SURGICAL HISTORY: Remarkable for hypertension, depression, arthritis, and lipoma removed from left chest wall. He has had previous benign gastric tumor, which was resected. FAMILY HISTORY: Hypertension, diabetes, and heart disease. 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 FAMILY HISTORY: Positive for COPD. REVIEW OF SYSTEMS: As indicated above, otherwise 10-point system was reviewed and negative. MEDICATIONS: List was reviewed. Please see the MRAD. PHYSICAL EXAMINATION: GENERAL: The patient had just returned from his cardiac catheterization. He was on no oxygen supplementation, saturation greater than 92%. He was in no significant respiratory distress. NECK: Jugular venous distention could not be assessed secondary to body habitus. LUNGS: Adequate airway flow, no wheezes. CARDIOVASCULAR: Regular rate and rhythm with S1, S2, no S3. ABDOMEN: Obese. EXTREMITIES: No clubbing, cyanosis or pitting edema. NEUROLOGIC: The patient was awake, alert, following commands. A detailed neuro exam was not performed. LABORATORY DATA: Reviewed. White count was normal. Hemoglobin and hematocrit were normal. Electrolytes were normal. Troponin was normal. Cardiac catheterization as indicated above, apparently normal, no significant disease. DIAGNOSTIC DATA: CT angiogram; no evidence of pulmonary embolism. IMPRESSION: Progressive dyspnea and chest pain. The patient has had a full workup including cardiac catheterization revealing no evidence of coronary artery disease. CT angiogram revealing no evidence of pulmonary embolism. Most of his complaints of dyspnea and intermittent wheeze, he will be discharged home on p.r.n. albuterol to follow up in the office with Dr. Bhatia. His main other complaint is cough, I suspect this is multifactorial secondary to reflux and possible allergies; I prescribed Pepcid 40 mg one p.o. at bedtime, we ____ over dietary changes that would help and preventing reflux. From my standpoint of view, the patient could be discharged home in the a.m. to follow up with Dr. Bhatia in June. He had a scheduled visit for tomorrow. He does not need to maintain his scheduled visit for tomorrow. I do appreciate the privilege in sharing in the patient's care. TAMMY SOLIS MD DR: REED/yuliana JOB#: [id number] / [id number]
[2017-05-12 06:12] LABS: CALCIUM 8.3 mg/dL (8.5-10.1); CREATININE 1.1 mg/dL (0.7-1.3); GFR 69.5; POTASSIUM 3.9 mmol/L (3.5-5.1)
[2017-05-12 07:00] VITALS: BP 136/85
[2017-05-12] MEDS ORDERED: CITALOPRAM 10 MG TABLET. PO SCH (09:00)
--- NOTE | 2017-05-12 09:10 | CARD ---
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 INDICATION The indication(s) include : unstable angina . PROCEDURE NARRATIVE The patient was brought electively to the cardiac catheterization lab. A timeout was performed confi rming the patient's name, date of , procedure, and site of procedure. All necessary personnel w ere wearing the appropriate protective equipment and radiation monitor devices. After explaining the risks and benefits of the procedure and alternatives, informed consent was obtained. (See nursing no lauro for medications administered). The right wrist was sterilely prepped and draped in the usual fas hion. The right wrist was infiltrated with 1 mL of 2% lidocaine for subcutaneous anesthesia. A 6 Fr ench Terumo glide sheath was inserted into the right radial artery without difficulty. Right and lef t coronary angiography was performed using a 6Fr TIG 4.0 catheter. Left ventricular end diastolic pr essure was obtained with a pigtail catheter and pullback was performed after left ventriculography. All catheter exchanges and advancements were performed over a guidewire. At case completion the righ t radial sheath was removed and a Terumo radial band was applied with 13 ml of air. The patient tole rated the procedure well and there were no immediate complications. HEMODYNAMICS: LVEDP 18 mm Hg No gradient on LV to aortic pullback. LEFT VENTRICULOGRAM: EF 55% Anterobasal: Normal. Anterolateral: Normal Apical: Normal Diaphragmatic: Normal Posterobasal: Normal CORONARY ANGIOGRAPHY: LM is a large caliber vessel with normal angiographic appearance. LAD is a large caliber vessel with mild luminal irregularities. Ramus is a moderate caliber vessel with 30% stenosis. LCx is a moderate caliber non-dominant vessel with 20% proximal and mid stenosis. OM1 is a moderate caliber vessel with normal angiographic appearance. RCA is a large caliber dominant vessel with proximal to mid 40% stenosis, mild ectasia. RPDA and RPL are small to moderate caliber vessels with normal angiographic appearance. Conclusion 1. Normal LV function. 2. Non-obstructive coronary artery disease. Recommendations Aggressive Medical Therapy
[2017-05-12] MEDS: LOSARTAN POTASSIUM 50 MG TABLET. PO SCH (10:05)
[2017-05-12] MEDS: ALLOPURINOL 300 MG TABLET. PO SCH (10:06)
[2017-05-12] MEDS: LIDOCAINE (700MG/PATCH) PATCH. TD SCH (10:06)
[2017-05-12 11:00] VITALS: BP 115/73
[2017-05-12] MEDS ORDERED: OXYC1TAB8 PO (11:56)
[2017-05-12] MEDS ORDERED: LIDO700A39 TD (11:56)
--- NOTE | 2017-05-12 20:13 | DS ---
DATE OF DISCHARGE: 05/12/2017 CHIEF COMPLAINT: Chest pain. HOSPITAL COURSE: The patient is a 56-year-old gentleman with a previous diagnosis of shortness of breath for which he had undergone stress test as well as pulmonary function test in the recent past, results not available. He presented with left-sided sharp stabbing rib pain. Both Cardiology and Pulmonology services were involved. Cardiac catheterization was obtained on the , which did not show significant obstruction, although 20%-40% stenosis was noted in multiple vessels. No intervention was undertaken further from a cardiology standpoint. From Pulmonary, the results of PFTs were essentially normal. CTA did not show any PE or other lung abnormality. The pain, therefore, was treated as chest wall pain with Percocet and lidocaine. DISCHARGE DATE: 05/12/2017. PHYSICAL EXAMINATION: VITAL SIGNS: 115/73, heart rate at 60, respiratory rate at 14. GENERAL: This is a morbidly obese, gentleman, alert and oriented, in no acute distress. LUNGS: Clear. HEART: Regular rate and rhythm. ABDOMEN: Has positive bowel sounds, soft, nontender. EXTREMITIES: Show no edema. DISCHARGE DIAGNOSES: Left-sided chest wall pain, ? muscle sprain. DISCHARGE DISPOSITION: To home. DISCHARGE CONDITION: Improved. DISCHARGE MEDICATIONS: Please refer to MAR. DISCHARGE INSTRUCTIONS: The patient will follow up with his PCP in 1 week. NAHUN WILLIAM MD DR: UR/nts JOB#: [id number] / [id number] GEMINI Prater MD MTDD
== END 2017-05-12 14:26 | disposition home or self-care (01) ==
LOC: ER 04:47 → 5 SOUTH 06:10
PROVIDERS: ADMIT Internal Medicine Hematology & Oncology; ATTEND Internal Medicine Hematology & Oncology
DX: I20.0 Unstable angina (principal); I10 Essential (primary) hypertension; E78.5 Hyperlipidemia, unspecified; E66.01 Morbid (severe) obesity due to excess calories; F32.9 Major depressive disorder, single episode, unspecified; M19.90 Unspecified osteoarthritis, unspecified site; E11.9 Type 2 diabetes mellitus without complications; M10.9 Gout, unspecified; G47.33 Obstructive sleep apnea (adult) (pediatric); F41.9 Anxiety disorder, unspecified; I26.99 Other pulmonary embolism without acute cor pulmonale; Z87.891 Personal history of nicotine dependence; Z83.3 Family history of diabetes mellitus; Z82.5 Family history of asthma and other chronic lower respiratory diseases; Z82.49 Family history of ischemic heart disease and other diseases of the circulatory system
CPT/HCPCS: 36415; 71010; 71275; 80048; 80053; 80061; 81001; 82550; 84484; 85027; 93005; 93458; 94250; 94640; 96374; 96375; C1769; C1892; G0378; G0379; J1644; J2001; J2250; J2270; J3010; J3490; J7613; Q9967; 99152

== ENCOUNTER → 2018-02-27 | Outpatient (CLI) | payer OTHER ==
[2018-02-27] MEDS: IOHEXOL 240 MG/ML 50ML VIAL. PO (15:22)
[2018-02-27] MEDS: IOHEXOL 300 MG/ML 100ML VIAL. IV (15:22)
== END | disposition home or self-care (01) ==
LOC: KCIC CT 13:56
DX: S46.012A Strain of muscle(s) and tendon(s) of the rotator cuff of left shoulder, initial encounter (principal); S43.082A Other subluxation of left shoulder joint, initial encounter; M19.012 Primary osteoarthritis, left shoulder; D71 Functional disorders of polymorphonuclear neutrophils; K76.0 Fatty (change of) liver, not elsewhere classified; N20.0 Calculus of kidney; I70.0 Atherosclerosis of aorta; R60.0 Localized edema; X58.XXXA Exposure to other specified factors, initial encounter; Y93.89 Activity, other specified; Y92.89 Other specified places as the place of occurrence of the external cause; Y99.8 Other external cause status
CPT/HCPCS: 71260; 73221; 74160; Q9966; Q9967

== ENCOUNTER 2018-05-23 07:39 | Day surgery (SDC) | payer OTHER ==
[2018-05-23] MEDS: IV RINGERS,LACTATED 1000ML 1,000 ML IV (07:00)
[~2018-05-23 07:39] MED LIST changes: -ALLO300T PO; -COLC0.6T34 PO; -CYCL10TA2 PO; -ESCITALOPRAM OX10 MG PO; -HYDR-2766 PO; +LIDOCAINE 1% PF 2 ML VIAL. ID; -LOSA1TAB17 PO; +MORPHINE SULFATE 2 MG/ML DISP.SYRIN. IV; -NAPR375T3 PO; +PROCHLORPERAZINE 10 MG/2 ML VIAL. IV; +fentaNYL PF VIAL 100 MCG/2 ML VIAL IV
[2018-05-23] MEDS ORDERED: EPINEPHrine 1 MG/ML VIAL (07:50)
[2018-05-23] MEDS ORDERED: MIDAZOLAM HCL/PF 2 MG/2 ML VIAL. (07:50)
[2018-05-23] MEDS ORDERED: BUPIVACAINE 0.5% 50 ML VIAL. (07:50)
[2018-05-23] MEDS ORDERED: ROCURONIUM 50 MG/5 ML VIAL. ×2 (08:04→09:55)
[2018-05-23] MEDS ORDERED: fentaNYL PF VIAL 100 MCG/2 ML VIAL ×2 (08:04→11:51)
[2018-05-23] MEDS ORDERED: ONDANSETRON PF 4 MG/2 ML VIAL. ×2 (08:04→12:24)
[2018-05-23] MEDS ORDERED: PROPOFOL 20 ML IV ×2 (08:04→09:59)
[2018-05-23] MEDS ORDERED: DEXAMETHASONE SOD PHOS 20 MG/5 ML VIAL. (08:04)
[2018-05-23] MEDS ORDERED: LIDOCAINE 2% PF Vial for OR 5 ML VIAL. (08:48)
[2018-05-23] MEDS: BUPIVACAINE 0.5% 50 ML VIAL. (08:59)
[2018-05-23] MEDS: LIDOCAINE 1% PF 30 ML VIAL. (08:59)
[2018-05-23] MEDS: EPINEPHrine VIAL 30 MG/30 ML VIAL (08:59)
[2018-05-23] MEDS ORDERED: PHENYLEPHRINE in 0.9% NACL PF 1 MG/10 ML SYRINGE. IV (09:03)
[2018-05-23] MEDS ORDERED: ePHEDrine PF IN SALINE 50 MG/5 ML DISP.SYRIN IV (09:33)
[2018-05-23] MEDS ORDERED: NEOSTIGMINE METHYLSULFATE 5 MG/5 ML SYRINGE. (09:51)
[2018-05-23] MEDS ORDERED: GLYCOPYRROLATE 1 MG/5 ML VIAL. (09:51)
[2018-05-23] MEDS ORDERED: SEVOFLURANE 61 TO 120 MINUTES. IH (10:33)
[2018-05-23] MEDS ORDERED: HYDROcodone/APAP 5/325MG 1 TAB TABLET (11:51)
[2018-05-23] MEDS: oxyCODONE/APAP 5/325 1 TAB TABLET PO (11:56)
[2018-05-23] MEDS: HYDROcodone/APAP 5/325MG 1 TAB TABLET PO (12:00)
[2018-05-23] MEDS: ONDANSETRON PF 4 MG/2 ML VIAL. IV (12:30)
== END 2018-05-23 13:00 | disposition home or self-care (01) ==
LOC: SURG 07:39
DX: M75.112 Incomplete rotator cuff tear or rupture of left shoulder, not specified as traumatic (principal); M19.012 Primary osteoarthritis, left shoulder; M67.814 Other specified disorders of tendon, left shoulder; I10 Essential (primary) hypertension; G47.33 Obstructive sleep apnea (adult) (pediatric); M10.9 Gout, unspecified; I25.10 Atherosclerotic heart disease of native coronary artery without angina pectoris; F41.9 Anxiety disorder, unspecified; F32.9 Major depressive disorder, single episode, unspecified; Z98.890 Other specified postprocedural states; E78.00 Pure hypercholesterolemia, unspecified; Z85.028 Personal history of other malignant neoplasm of stomach; Z90.49 Acquired absence of other specified parts of digestive tract; E66.9 Obesity, unspecified; Z68.38 Body mass index [BMI] 38.0-38.9, adult; Z87.442 Personal history of urinary calculi; M19.90 Unspecified osteoarthritis, unspecified site; Z72.89 Other problems related to lifestyle; Z87.891 Personal history of nicotine dependence; Z79.899 Other long term (current) drug therapy; I70.0 Atherosclerosis of aorta; Z83.6 Family history of other diseases of the respiratory system; Z80.0 Family history of malignant neoplasm of digestive organs; Z83.3 Family history of diabetes mellitus; Z82.49 Family history of ischemic heart disease and other diseases of the circulatory system
CPT/HCPCS: 23430; A7015; C1713; C1782; C1876; J0171; J1100; J2001; J2250; J2370; J2405; J2704; J2710; J3010; J3490; J7120

== ENCOUNTER 2018-05-27 11:19 | Emergency (ER) | payer OTHER ==
[~2018-05-27] VITALS: Ht 182.9 cm; Wt 130.2 kg
[~2018-05-27 11:19] MED LIST changes: +ALLO300T PO; +AMLO5TAB2 PO; +COLC0.6T34 PO; +CYCL10TA2 PO; +DOCU-109 PO; +ESCITALOPRAM OX10 MG PO; +ESCITALOPRAM OX20 MG PO; +FAMO40TA4 PO; +HYDR-2766 PO; +HYDR200T5 PO; +LIDO700A39 TD; -LIDOCAINE 1% PF 2 ML VIAL. ID; +LOSA1TAB22 PO; -MORPHINE SULFATE 2 MG/ML DISP.SYRIN. IV; +NAPR-695 PO; +ONDA8TAB12 PO; +OXYC-323 PO; +OXYC1TAB8 PO; -PROCHLORPERAZINE 10 MG/2 ML VIAL. IV; +SUMA100T4 PO; -fentaNYL PF VIAL 100 MCG/2 ML VIAL IV
[2018-05-27] MEDS ORDERED: fentaNYL PF VIAL 100 MCG/2 ML VIAL IV ONE (13:30)
[2018-05-27] MEDS ORDERED: ONDANSETRON PF 4 MG/2 ML VIAL. IV ONE (13:30)
--- NOTE | 2018-05-27 13:30 | PHYS DOC ---
Past Medical History Past Medical History: Arthritis, High Cholesterol, Hypertension, Kidney Stone, Other Additional Past Medical Histor: gout Past Surgical History: Other Additional Past Surgical Histo: stomach tumor/surgery Alcohol Use: Occasionally Drug Use: None Adult General Chief Complaint Chief Complaint: POST-OP PROBLEM HPI HPI Patient is a 57 year old male with a history of hypertension presents to the ED complaining of shortness of breath 2 days ago. Patient states he had rotator cuff surgery with Dr. Kenny 4 days ago. States he woke up the last 2 nights complaining of shortness of breath. States he walked outside and eventually it went away. Denies chest pain, fever, nausea/vomiting, weakness, dizziness, diarrhea, abdominal pain or syncope. Review of Systems Review of Systems Constitutional: Denies fever or chills [] Eyes: Denies change in visual acuity, redness, or eye pain [] HENT: Denies nasal congestion or sore throat [] Respiratory: Complains of shortness of breath. Denies cough. Cardiovascular: No additional information not addressed in HPI [] GI: Denies abdominal pain, nausea, vomiting, bloody stools or diarrhea [] : Denies dysuria or hematuria [] Musculoskeletal: Denies back pain or joint pain [] Integument: Denies rash or skin lesions [] Neurologic: Denies headache, focal weakness or sensory changes [] All other systems were reviewed and found to be within normal limits, except as documented in this note. Current Medications Current Medications Current Medications Medications (Trade) Dose Ordered Sig/Madhavi Start Time Stop Time Status Last Admin Dose Admin Fentanyl Citrate (Fentanyl 2ml Vial) 75 mcg 1X ONCE 05/27/18 13:30 05/27/18 13:31 DC 05/27/18 14:00 75 MCG Info (CONTRAST GIVEN -- Rx MONITORING) 1 each PRN DAILY PRN 05/27/18 14:30 05/27/18 15:43 DC Iohexol (Omnipaque 300 Mg/ml) 75 ml 1X ONCE 05/27/18 14:30 05/27/18 14:31 DC 05/27/18 14:30 75 ML Ondansetron HCl (Zofran) 4 mg 1X ONCE 05/27/18 13:30 05/27/18 13:31 DC 05/27/18 13:59 4 MG Allergies Allergies Allergies Coded Allergies Type Severity Reaction Last Updated Verified No Known Drug Allergies 05/23/18 No Physical Exam Physical Exam Constitutional: Well developed, well nourished, no acute distress, non-toxic appearance. [] HENT: Normocephalic, atraumatic Neck: Normal range of motion, no tenderness, supple, no stridor. [] Cardiovascular:Heart rate regular rhythm, no murmur [] Lungs & Thorax: Bilateral breath sounds clear to auscultation [] Abdomen: Bowel sounds normal, soft, no tenderness, no masses, no pulsatile masses. [] Skin: Warm, dry, no erythema, no rash. [] Back: No tenderness, no CVA tenderness. [] Extremities: No tenderness, no cyanosis, no clubbing, ROM intact, no edema. [] Neurologic: Alert and oriented X 3, normal motor function, normal sensory function, no focal deficits noted. [] Psychologic: Affect normal, judgement normal, mood normal. [] Current Patient Data Vital Signs Vital Signs Date Time Temp Pulse Resp B/P (MAP) Pulse Ox O2 Delivery O2 Flow Rate FiO2 05/27/18 15:43 82 130/81 (97) 95 Room Air 05/27/18 13:39 98.1 20 98.1 Lab Values Laboratory Tests Test 05/27/18 13:50 White Blood Count 12.0 x10^3/uL (4.0-11.0) H Red Blood Count 5.62 x10^6/uL (4.30-5.70) Hemoglobin 17.8 g/dL (13.0-17.5) H Hematocrit 51.3 % (39.0-53.0) Mean Corpuscular Volume 91 fL (79-100) Mean Corpuscular Hemoglobin 32 pg (25-35) Mean Corpuscular Hemoglobin Concent 35 g/dL (31-37) Red Cell Distribution Width 13.2 % (11.5-14.5) Platelet Count 342 x10^3/uL (140-400) Neutrophils (%) (Auto) 61 % (31-73) Lymphocytes (%) (Auto) 30 % (24-48) Monocytes (%) (Auto) 8 % (0-9) Eosinophils (%) (Auto) 1 % (0-3) Basophils (%) (Auto) 1 % (0-3) Neutrophils # (Auto) 7.3 x10^3uL (1.8-7.7) Lymphocytes # (Auto) 3.6 x10^3/uL (1.0-4.8) Monocytes # (Auto) 0.9 x10^3/uL (0.0-1.1) Eosinophils # (Auto) 0.1 x10^3/uL (0.0-0.7) Basophils # (Auto) 0.1 x10^3/uL (0.0-0.2) Prothrombin Time 12.4 SEC (11.7-14.0) Prothrombin Time INR 1.0 (0.8-1.1) Sodium Level 139 mmol/L (136-145) Potassium Level 4.2 mmol/L (3.5-5.1) Chloride Level 99 mmol/L (98-107) Carbon Dioxide Level 32 mmol/L (21-32) Anion Gap 8 (6-14) Blood Urea Nitrogen 16 mg/dL (8-26) Creatinine 0.9 mg/dL (0.7-1.3) Estimated GFR (Cockcroft-Gault) 87.3 BUN/Creatinine Ratio 18 (6-20) Glucose Level 96 mg/dL (70-99) Calcium Level 9.0 mg/dL (8.5-10.1) Total Bilirubin 0.4 mg/dL (0.2-1.0) Aspartate Amino Transferase (AST) 16 U/L (15-37) Alanine Aminotransferase (ALT) 44 U/L (16-63) Alkaline Phosphatase 84 U/L (46-116) Troponin I Quantitative < 0.017 ng/mL (0.000-0.055) Total Protein 7.9 g/dL (6.4-8.2) Albumin 3.9 g/dL (3.4-5.0) Albumin/Globulin Ratio 1.0 (1.0-1.7) Laboratory Tests 05/27/18 13:50 Laboratory Tests 05/27/18 13:50 EKG EKG EKG shows Sinus Rhythm at 89 BPM. No STEMI.[] Radiology/Procedures Radiology/Procedures PROCEDURE: CT ANGIOGRAPHY CHEST CTA of the chest with contrast, 05/27/2018: HISTORY: Shortness of breath, recent surgery, possible pulmonary emboli Multidetector CT imaging was performed following an IV bolus injection of iodinated contrast material. Multiplanar reconstructions were produced including coronal MIP images. The main and lobar pulmonary arteries are well opacified and no filling defects are seen to suggest pulmonary emboli. Some of the smaller pulmonary arteries are less clearly defined. There is mild calcific plaquing of the thoracic aorta without evidence of aneurysm. Several scattered coronary artery calcifications are noted. No mediastinal or hilar adenopathy is evident. No pulmonary infiltrate is seen. There is no evidence of pleural fluid. Several bubbles of gas are present in the soft tissues of the left anterior chest wall compatible with a history of recent shoulder surgery. Incidental note is made of a tiny intrarenal calculus on the right. There are surgical sutures related to the distal aspect of the stomach. IMPRESSION: 1. No CT evidence of central pulmonary emboli. 2. Coronary artery calcifications.[] Course & Med Decision Making Course & Med Decision Making Pertinent Labs and Imaging studies reviewed. (See chart for details) []Discussed lab and imaging findings with patient. Patient states he is feeling much better. States that he wanted to make sure he did not have a clot in his lungs. Patient states he has had an echo and cardiac workup in the last 6-9 months which was negative. Patient is taking hydrocodone at home for his pain. Will take Benadryl with it for his itching. States he follows up with Dr. Kenny this coming week. Provided contact information/education. Discussed reasons to return to the ED. Patient understands and agrees with plan. Family at bedside. Dragon Disclaimer Dragon Disclaimer This electronic medical record was generated, in whole or in part, using a voice recognition dictation system. Departure Departure Impression: Primary Impression: Shoulder pain Disposition: 01 HOME, SELF-CARE Condition: IMPROVED Referrals: DAYTON DAMON MD (PCP) KSENIA KENNY II, MD Patient Instructions: Shoulder Pain Scripts Hydroxyzine Hcl (HYDROXYZINE HCL) 25 Mg Tablet 1 TAB PO TID for 5 Days, #15 TAB Prov: HARLEY BONDS 05/27/18 HARLEY BONDS May 27, 2018 13:30
--- NOTE | 2018-05-27 14:00 | RAD ---
Portable chest 05/27/2018: HISTORY: Shortness of breath, recent surgery The heart size and vascularity are normal. There is mild tortuosity of the thoracic aorta. No pulmonary infiltrate is seen. There is no evidence of pleural fluid. IMPRESSION: No acute cardiopulmonary abnormality is detected. Electronically signed by: Ildefonso Wyatt MD (05/27/2018 1:56 PM) [facility]
[2018-05-27 14:14] LABS: BASO # 0.1 x10^3/uL (0.0-0.2); BASO % 1 % (0-3); EOS # 0.1 x10^3/uL (0.0-0.7); EOS % 1 % (0-3); HEMATOCRIT 51.3 % (39.0-53.0); HEMOGLOBIN 17.8 g/dL (13.0-17.5); LYMPH # 3.6 x10^3/uL (1.0-4.8); LYMPH % 30 % (24-48); MEAN CORPUSCULAR HEMOGLOBIN 32 pg (25-35); MEAN CORPUSCULAR HGB CONC 35 g/dL (31-37); MEAN CORPUSCULAR VOLUME 91 fL (79-100); MONO # 0.9 x10^3/uL (0.0-1.1); MONO % 8 % (0-9); NEUT # 7.3 x10^3uL (1.8-7.7); NEUT % 61 % (31-73); PLATELET COUNT 342 x10^3/uL (140-400); RED BLOOD COUNT 5.62 x10^6/uL (4.30-5.70); RED CELL DISTRIBUTION WIDTH 13.2 % (11.5-14.5)
[2018-05-27 14:20] LABS: CREATININE 0.9 mg/dL (0.7-1.3); GFR 87.3; POTASSIUM 4.2 mmol/L (3.5-5.1)
[2018-05-27 14:25] LABS: ALBUMIN 3.9 g/dL (3.4-5.0); TOTAL BILIRUBIN 0.4 mg/dL (0.2-1.0); TOTAL PROTEIN 7.9 g/dL (6.4-8.2)
[2018-05-27 14:29] LABS: PROTHROMBIN TIME PATIENT 12.4 SEC (11.7-14.0)
[2018-05-27] MEDS ORDERED: IOHEXOL 300 MG/ML 100ML VIAL. IV ONE (14:30)
[2018-05-27] MEDS ORDERED: CONTRAST GIVEN. MC PRN (14:30)
--- NOTE | 2018-05-27 15:12 | RAD ---
CTA of the chest with contrast, 05/27/2018: HISTORY: Shortness of breath, recent surgery, possible pulmonary emboli Multidetector CT imaging was performed following an IV bolus injection of iodinated contrast material. Multiplanar reconstructions were produced including coronal MIP images. The main and lobar pulmonary arteries are well opacified and no filling defects are seen to suggest pulmonary emboli. Some of the smaller pulmonary arteries are less clearly defined. There is mild calcific plaquing of the thoracic aorta without evidence of aneurysm. Several scattered coronary artery calcifications are noted. No mediastinal or hilar adenopathy is evident. No pulmonary infiltrate is seen. There is no evidence of pleural fluid. Several bubbles of gas are present in the soft tissues of the left anterior chest wall compatible with a history of recent shoulder surgery. Incidental note is made of a tiny intrarenal calculus on the right. There are surgical sutures related to the distal aspect of the stomach. IMPRESSION: 1. No CT evidence of central pulmonary emboli. 2. Coronary artery calcifications. PQRS Compliance Statement: One or more of the following individualized dose reduction techniques were utilized for this examination: 1. Automated exposure control 2. Adjustment of the mA and/or kV according to patient size 3. Use of iterative reconstruction technique Electronically signed by: Ildefonso Wyatt MD (05/27/2018 3:08 PM) [facility]
[2018-05-27] MEDS ORDERED: HYDR25TA PO (15:39)
[2018-05-27 15:43] VITALS: BP 130/81
--- NOTE | 2018-05-28 06:23 | EKG ---
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
== END 2018-05-27 15:43 | disposition home or self-care (01) ==
LOC: ER 11:19
DX: G89.18 Other acute postprocedural pain (principal); M25.512 Pain in left shoulder; R06.02 Shortness of breath; Q25.46 Tortuous aortic arch; I70.0 Atherosclerosis of aorta
CPT/HCPCS: 36415; 71045; 71275; 80053; 84484; 85025; 85610; 93005; 96374; 96375; 99285; J2405; J3010; Q9967

== ENCOUNTER → 2019-07-18 | Outpatient (CLI) | payer OTHER ==
[~2019-07-18] MED LIST changes: +AMLO5TAB10 PO; -AMLO5TAB2 PO; -HYDR-2766 PO; +HYDR-2769 PO; +HYDR25TA PO; +LIDO700A21 TD; -LIDO700A39 TD; -OXYC-323 PO; +OXYC1TAB15 PO
--- NOTE | 2019-07-18 12:20 | KCIC ---
MRI of the cervical spine without contrast 07/18/2019 CLINICAL HISTORY: Neck pain with left arm pain. TECHNIQUE: Unenhanced T1-weighted, T2-weighted and inversion recovery sagittal and gradient echo and T2-weighted axial images of the cervical spine were obtained. FINDINGS: Comparison study is dated 07/22/2016. Images from the study are degraded by patient motion. Mild lateral curvature of the cervical spine is seen convex to the left. There is slight reversal of the normal cervical lordosis. Degenerative signal changes are seen involving all of the disks of the cervical spine. Degenerative signal changes are seen within the marrow surrounding these discs. No area of abnormal signal intensity is seen involving the cervical spinal cord. At the C2-3 and C3-4 disc spaces there are minimal to mild generalized disc bulges. Degenerative changes are seen involving the uncovertebral and facet joints bilaterally. These findings do not result in significant central spinal canal or neural foraminal stenosis. At the C4-5 disc space there is a mild generalized disc bulge. Superimposed on this disc bulge is a central/right paracentral disc osteophyte complex. This measures 4 mm in AP diameter. Degenerative changes are seen involving the uncovertebral and facet joints, right greater than left. These findings efface the anterior CSF resulting in mild central spinal canal stenosis, right greater than left without definite cord impingement. Mild to moderate right greater than left neural foraminal stenosis is seen. At the C5-6 disc space there is a mild generalized disc bulge. Superimposed on this disc bulge is a central/right paracentral disc osteophyte complex. This measures 3 mm in AP diameter. Degenerative changes are seen involving the uncovertebral and facet joints, left greater than right. These findings efface the anterior and posterior CSF resulting in mild central spinal canal stenosis without significant cord impingement. Mild bilateral neural foraminal stenosis is seen. At the C6-7 disc space there is a mild generalized disc bulge. Superimposed on this disc bulge is a left paracentral disc osteophyte complex. This measures 4 mm in AP diameter. Degenerative changes are seen involving the uncovertebral and facet joints, left greater than right. These findings when combined result in mild left-sided central spinal canal stenosis without evidence of cord impingement. Moderate left neural foraminal stenosis is seen. The right neural foramen is patent. At the C7-T1 disc space there is a minimal generalized disc bulge. Degenerative changes are seen involving the uncovertebral and facet joints bilaterally. These findings when combined do not result in significant central spinal canal or neural foraminal stenosis. IMPRESSION: Degenerative changes are seen throughout the cervical spine. These findings result in mild central spinal canal stenosis, right greater than left at C4-5, mild central spinal canal stenosis at C5-6 and mild left-sided central spinal canal stenosis at C6-7 without evidence of cord impingement. Mild to moderate right greater than left neural foraminal stenosis is seen at C4-5. Mild bilateral neural foraminal stenosis is seen at C5-6. Moderate left neural foraminal stenosis is seen at C6-7. Electronically signed by: Israel Finnegan MD (07/18/2019 12:17 PM) [id number]
--- NOTE | 2019-07-18 14:38 | KCIC ---
MRI of the lumbar spine without contrast 07/18/2019 CLINICAL HISTORY: Low back pain with bilateral leg numbness for 2 to 3 months. TECHNIQUE: Unenhanced T1-weighted and T2-weighted sagittal and axial and inversion recovery sagittal images of the lumbar spine were obtained. FINDINGS: Images from the study are degraded by patient motion. Minimal S-shaped curvature of the thoracolumbar spine is seen. Very mild anterolisthesis of L4 in relation to L5 is noted. Degenerative signal changes are seen involving all of the disks of the lumbar spine. Degenerative signal changes are seen within the marrow surrounding these discs. A 7 mm hemangioma is seen involving the L2 vertebral body. The conus medullaris is normal morphology, position, and signal characteristics. At the L1-2, L2-3 and L3-4 disc spaces there are minimal to mild generalized disc bulges. Degenerative changes are seen involving the facet joints bilaterally. There is mild ligamentum flavum hypertrophy bilaterally. There is prominence of the posterior epidural fat. These findings when combined do not result in definite areas of significant central spinal canal or neural foraminal stenosis. At the L4-5 disc space there is a mild to moderate generalized disc bulge. This is eccentric to the right. Degenerative changes are seen involving the facet joints, right greater than left. There is mild to moderate ligamentum flavum hypertrophy bilaterally. There is prominence of the posterior epidural fat. These findings when combined result in moderate to severe central spinal canal stenosis. Moderate bilateral neural foraminal stenosis is seen. At the L5-S1 disc space there is a mild to moderate generalized disc bulge. This is eccentric to the left. Degenerative changes are seen involving the facet joints bilaterally. There is mild ligamentum flavum hypertrophy bilaterally. These findings when combined with prominence of the anterior and posterior epidural fat result in mild central spinal canal stenosis. Moderate to severe left neural foraminal stenosis is seen. The right neural foramen is patent. IMPRESSION: The changes of degenerative disc disease are seen throughout the lumbar spine. These findings result in moderate to severe central spinal canal stenosis at L4-5 and mild central spinal canal stenosis at L5-S1. Moderate bilateral neural foraminal stenosis is seen at L4-5. Moderate to severe left neural foraminal stenosis is seen at L5-S1. Electronically signed by: Israel Finnegan MD (07/18/2019 2:35 PM) [email or web address]
== END | disposition home or self-care (01) ==
LOC: KCIC MRI 10:57
PROVIDERS: ATTEND Nurse Practitioner Family
DX: M48.02 Spinal stenosis, cervical region (principal); M51.16 Intervertebral disc disorders with radiculopathy, lumbar region; M48.061 Spinal stenosis, lumbar region without neurogenic claudication
CPT/HCPCS: 72141; 72148

== ENCOUNTER 2019-08-13 08:52 | Outpatient (CLI) | payer OTHER ==
[~2019-08-13] VITALS: Ht 182.9 cm; Wt 134.7 kg
[2019-08-13] VITALS (10 sets, daily range): BP systolic 115–160; BP diastolic 71–97
[2019-08-13] MEDS ORDERED: FURO20TA3 PO (09:12)
[2019-08-13] MEDS ORDERED: CELE200C PO (09:12)
[2019-08-13] MEDS ORDERED: HYDR-2145 PO (09:12)
[2019-08-13] MEDS ORDERED: LOSA100T14 PO (09:12)
[2019-08-13] MEDS ORDERED: GABA300C18 PO (09:12)
[2019-08-13] MEDS ORDERED: TIZA4TAB2 PO (09:12)
[2019-08-13] MEDS ORDERED: METO25TA4 PO (09:12)
[2019-08-13 09:36] LABS: CALCIUM 8.9 mg/dL (8.5-10.1); CREATININE 0.8 mg/dL (0.7-1.3); GFR 99.6; POTASSIUM 3.7 mmol/L (3.5-5.1)
[2019-08-13 09:40] LABS: HEMATOCRIT 44.4 % (39.0-53.0); HEMOGLOBIN 15.5 g/dL (13.0-17.5); RED BLOOD COUNT 4.94 x10^6/uL (4.30-5.70); RED CELL DISTRIBUTION WIDTH 13.1 % (11.5-14.5); WHITE BLOOD COUNT 11.5 x10^3/uL (4.0-11.0)
[2019-08-13 09:53] LABS: PROTHROMBIN TIME PATIENT 12.9 SEC (11.7-14.0)
[2019-08-13] MEDS ORDERED: fentaNYL PF VIAL 100 MCG/2 ML VIAL ONE (10:08)
[2019-08-13] MEDS ORDERED: IOHEXOL 300 MG/ML 100ML VIAL. ONE (10:09)
[2019-08-13] MEDS ORDERED: LIDOCAINE 1% Multi-Dose 20 ML VIAL. ONE ×2 (10:09→10:11)
[2019-08-13] MEDS ORDERED: MIDAZOLAM HCL/PF 2 MG/2 ML VIAL. ONE ×2 (10:09→10:29)
[2019-08-13] MEDS ORDERED: fentaNYL PF VIAL 100 MCG/2 ML VIAL IV ONE (10:15)
[2019-08-13] MEDS ORDERED: MIDAZOLAM HCL/PF 2 MG/2 ML VIAL. IV ONE (10:15)
[2019-08-13] MEDS ORDERED: LIDOCAINE 1% Multi-Dose 20 ML VIAL. INJ ONE (10:15)
[2019-08-13] MEDS ORDERED: IOHEXOL 300 MG/ML 100ML VIAL. IART ONE (10:15)
[2019-08-13] MEDS ORDERED: CONTRAST GIVEN. MC PRN (10:30)
[2019-08-13] MEDS ORDERED: diphenhydrAMINE 50 MG/ML VIAL ONE (10:53)
--- NOTE | 2019-08-13 10:56 | PDOC ---
MODERATE SEDATION ASSESSMENT RISKS/ALTERNATIVES Risks/Alternatives Risks and alternatives of this type of sedation and procedure discussed with: RISK/ALTERNATIVES: Patient H & P ON CHART H & P H & P on chart and reviewed for co-morbid conditions and appropriate labs. H&P ON CHART: Yes STATUS PREG STATUS ASSESSED: N/A MEDS/ALLERGIES REVIEWED Meds/Allergies Reviewed Medications and Allergies including time and route of recently administered narcotics and sedatives. MEDS/ALLERGIES REVIEWED: Yes ASA RATING ASA RATING: II AIRWAY ASSESSMENT Airway Assessment Airway patency, oral function limitations, presence of caps, crowns, dentures, partials, and ability to extend neck assessed. AIRWAY ASSESSMENT: Yes MALLAMPATI SCORE MALLAMPATI SCORE: II PRE-SEDATION ASSESSMENT PRE-SEDATION ASSESSMENT: Yes DIRK JARRETT MD Aug 13, 2019 10:56
[2019-08-13] MEDS ORDERED: IV 1/2 NORMAL SALINE 1,000 ML IV SCH (10:57)
[2019-08-13] MEDS ORDERED: diphenhydrAMINE 50 MG/ML VIAL IVP ONE (11:00)
[2019-08-13] MEDS ORDERED: NITROGLYCERIN SUBLINGUAL 0.4 MG BOTTLE OF 25. SL PRN (11:00)
--- NOTE | 2019-08-13 11:22 | CARD ---
MR#: [id number] Date of Study: 08/13/2019 Ordering Physician: DIRK JARRETT, Referring Physician: DIRK JARRETT Tech: ERICKA GIL RTR APPROVED REPORT Technologist: ERICKA GIL RTR Nurse: Erma Oliva RN Procedure(s) performed: Right and left heart catheterization, selective coronary angiography and left ventriculography MODERATE SEDATION TIME: 40 minutes FLUORO TIME: 3.7 MIN DOSE: 45.6 GYCM2 CONTRAST: 87 INDICATION The indication(s) include : Refractory dyspnea on exertion. [facility] Clinical Frailty Scale [facility] Clinical Frailty Scale: Mildly Frail Heart Failure Heart Failure: No PROCEDURE NARRATIVE After explaining the risks, benefits and alternative options, informed consent was obtained from judith ent. Patient was brought to the cardiac [employer] and his right groin was prepped and draped in the us ual fashion. 20 mL of 2% lidocaine was infiltrated into the skin and subcutaneous tissues for local a nesthesia. Arterial and venous accesses were obtained in the right common femoral artery and vein res pectively and 6 and 8 [place] sheaths inserted. A 7.5 [place] catheter was then advanced unde r fluoroscopy guidance and intracardiac pressures, oxygen saturations were measured. Subsequently, 6 [place] JL4 and 6 [place] JR4 catheters were used to perform selective angiography of the left and righ t coronary arteries. 6 [place]ian pigtail catheter was used to perform left ventriculography. Patient vimal erated the procedure well. Hemostasis was achieved using Angio-Seal and manual compression. There wer e no immediate complications. FINDINGS A. RIGHT HEART CATHETERIZATION 1. Intracardiac pressures: Mean right atrial pressure 7 mmHg, right ventricular pressure 34/1 mmHg, pulmonary artery pressure 37/10 mmHg with mean PA pressure 22 mmHg and mean pulmonary capillary wedge pressure 7 mmHg. No pulmonary hypertension. 2. Oxygen saturations: Right atrium 75.9%, pulmonary artery 79.2% and femoral arterial sheath 98%. No evidence of intracardiac shunt. 3. Cardiac output by [place] method 7.45 L/m. B. LEFT HEART CATHETERIZATION 1. Hemodynamics: Left ventricular end-diastolic pressure 12 mmHg. No pullback gradient across the a ortic valve. 2. Left ventriculography: Normal left ventricle systolic function with ejection fraction estimated at 60%. No significant mitral regurgitation seen. 3. Coronary angiography: a. The left main coronary artery arose from the left sinus of Valsalva, gave rise to the left anteri or descending and left circumflex arteries and did not show any significant stenosis. b. The left anterior descending artery did not show any significant stenosis. c. The left circumflex artery did not show any significant stenosis. d. The right coronary artery was a large and dominant vessel arising from the right sinus of Valsalv a that did not show any significant stenosis. Conclusion 1. No significant coronary artery disease 2. Normal intracardiac pressures 3. No evidence of intracardiac shunt 4. Normal left ventricle systolic function with ejection fraction estimated at 60% Signed by : Dirk Jarrett, Electronically Approved : 08/13/2019 11:22:05
--- NOTE | 2019-08-13 14:30 | NUR ---
pt A&O x 3. rt groin site had a slow ooze. blood would well up at puncture site as soon as it was wiped. held pressure for a few minutes and applied a v-pad. pt then sat up and walked around- no further oozing noted. VSS. tolerating po well. d/c instructions given and questions answered. out to vehicle per w/c- his dtr to drive him home. pt was given a work release form as well.
== END 2019-08-13 14:30 | disposition home or self-care (01) ==
LOC: CCL 08:52
PROVIDERS: ATTEND Internal Medicine Cardiovascular Disease
DX: R06.09 Other forms of dyspnea (principal); I10 Essential (primary) hypertension; M10.9 Gout, unspecified; G47.30 Sleep apnea, unspecified; Z98.890 Other specified postprocedural states; Z79.899 Other long term (current) drug therapy; Z87.891 Personal history of nicotine dependence
CPT/HCPCS: 36415; 80048; 85027; 85610; 93460; 99152; 99153; C1760; C1769; C1773; C1892; J1200; J1644; J2250; J3010; Q9967; G0269; C1771

== ENCOUNTER → 2019-08-16 | Outpatient (CLI) | payer OTHER ==
[2019-08-13 13:50] VITALS: BP 154/89
[~2019-08-16] MED LIST changes: +CELE200C PO; +FURO20TA3 PO; +GABA300C18 PO; +HYDR-2145 PO; +LOSA100T14 PO; +METO25TA4 PO; +TIZA4TAB2 PO
--- NOTE | 2019-08-16 10:50 | KCIC ---
MRI study of the left shoulder without contrast Clinical indications: Previous surgery one year ago. Left shoulder pain after lifting injury 5 weeks ago. TECHNIQUE: Noncontrast MRI sequences of the left shoulder were performed in all 3 planes. FINDINGS: There is increased signal within the infraspinatus and supraspinatus tendons of rotator cuff consistent with tendinosis. There is a complete rotator cuff tear of the posterior aspect of the supraspinatus tendon and the lateral aspect of the infraspinatus tendon. There is medial retraction of the infraspinatus tendon. The defect measures 30 mm transversely and 24 mm in AP dimension. In addition, more anteriorly within the supraspinatus tendon, there is a full-thickness partial articular surface tear of this tendon. There is tendinosis of the subscapularis tendon. No complete tear of this tendon is seen. No muscle atrophy is evident. The intra-articular portion of the tendon of the long head of the biceps is not visualized and therefore may be torn or atrophic. The tendon is identified within the bicipital groove. Fluid is seen within the subdeltoid and subacromial bursa as a result of the complete tear. There is moderate degenerative osteoarthritis and spurring of the AC joint. There is spurring of the lateral inferior edge of the acromial process. A type III acromial process is seen. These findings may impinge the acromial humeral space. There are postoperative changes of the lateral aspect of the humeral head related to previous rotator cuff repair surgery. Mild chronic erosive change of the posterior lateral aspect of the humeral head is seen related to chronic acromial humeral space impingement. No other marrow infiltrative process is seen. No fracture is seen. Moderate degenerative cystic change of the glenoid fossa is seen especially anteriorly and inferiorly. There is chondromalacia of the glenohumeral joint. There is mild degenerative spurring of the glenohumeral joint. No significant glenohumeral joint effusion is seen. There is degenerative signal abnormality and mild attenuation of the superior glenoid labrum. Small tear of the superior glenoid labrum may be present. There is a small paralabral ganglion cyst seen just medial to the inferior glenoid anteriorly. Therefore an occult glenoid labral tear may be present here. The tear is not visualized on this nonarthrographic study. IMPRESSION: Complete tear of the infraspinatus tendon and supraspinatus tendon portion of the rotator cuff. Impingement of the acromial humeral space. 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 Possible degenerative tear of the superior glenoid labrum. Probable occult tear of the inferior glenoid labrum with associated paralabral ganglion cyst. Atrophy or tear of the intra-articular portion of the tendon of the long of the biceps. Electronically signed by: Jones Galarza MD (08/16/2019 10:47 AM) [email or web address]
== END | disposition home or self-care (01) ==
LOC: KCIC MRI 08:13
PROVIDERS: ATTEND Orthopaedic Surgery Sports Medicine
DX: M75.122 Complete rotator cuff tear or rupture of left shoulder, not specified as traumatic (principal); M19.012 Primary osteoarthritis, left shoulder; M94.212 Chondromalacia, left shoulder; M67.412 Ganglion, left shoulder
CPT/HCPCS: 73221

== ENCOUNTER → 2019-09-06 | Outpatient (CLI) | payer OTHER ==
[2019-08-13 13:50] VITALS: BP 154/89
[~2019-09-06] MED LIST changes: +LOSA-73 PO; +TRAM50TA PO
--- NOTE | 2019-09-06 09:39 | PAIN ---
DATE OF SERVICE: 09/06/2019 PROGRESS NOTE FOR PAIN CLINIC DIAGNOSES: 1. Cervical radiculopathy with cervical degenerative disk disease and cervical spinal stenosis. 2. Lumbar radiculopathy with lumbar degenerative disk disease. HISTORY OF PRESENT ILLNESS: The patient is a 58-year-old male who returns for followup status post cervical epidural steroid injection. He was last seen in 2016. The patient did very well with these. He reports he has had no significant pain until the last 6 months or so when he was at work and has noticed pain in his left lower extremity and into his low back. The patient reports it is mainly in the leg itself and the foot, toes, numbness and tingling, radiating pain from the posterior gluteus, posterior thigh, posterior calf and into the foot, especially the patient reports it is becoming more constant, it is burning, primarily at night, in the shoulders and arms, hurting on the left side, but tingling and numbness in the left leg as well as the left arm. The patient reports otherwise he is doing well. No motor or sensory deficits. The patient has had physical therapy in 2017 and 2018, which did help with the C-arm in the left lower extremity. He is taking ibuprofen, Tylenol as well as tramadol, all of which do help to some extent, but only about 50% at the most. The patient has been doing stretching and strengthening exercises on his own as well with the low back and left leg. He had seen a kennel manager dog track who was recommending MRI scan, which he did obtain of the lumbar spine showing changes of degenerative disk disease throughout with mild to moderate central severe stenosis at L4-L5 and mild central spinal canal stenosis at L5-S1, moderate bilateral neural foraminal stenosis at L4-L5 and moderate to severe left neural foraminal stenosis at L5-S1. The patient rates his disability rating from 0-10, 10 being the worst, is a 5 with family home responsibilities and social activity, 8 with recreation, 9 with occupation, 3 with self-care activities, 0 with life support activities. The patient reports it awakens him from sleep occasionally, but very rarely. No new motor or sensory deficits or other complaints. PHYSICAL EXAMINATION: VITAL SIGNS: Today, the patient's blood pressure is 129/83, pulse 58, respirations 18, temperature is 97.9 degrees Fahrenheit. Height is 6 feet. Weight is 297 pounds. GENERAL: The patient is awake, alert, oriented, appropriate, very pleasant demeanor. HEENT: Shows normocephalic, atraumatic. Extraocular movements are intact and symmetrical. Oral cavity shows mucous membranes are moist and pink. Dentition is intact. NECK: Shows anterior throat supple without palpable lymphadenopathy noted. Swallow reflex symmetrical. CHEST: Shows normal on inspection. Breath sounds are clear bilaterally. HEART: Shows S1 and S2 clear. No murmurs auscultated. ABDOMEN: Soft, nontender, nondistended. No palpable organomegaly is noted. There is no rebound or guarding demonstrated. BACK: Shows spine grossly in the midline, normal-appearing cervical lordotic curvature, thoracic kyphotic curvature and lumbar lordotic curvature. Lumbar paraspinous muscle shows symmetrical on inspection with some very mild tenderness in the lower lumbar distribution of paraspinous muscles bilaterally, but only diffusely without radiation. No tenderness over the spinous processes, sacrum or sacroiliac regions. The patient has good rotational motion of the lumbar spine, both laterally as well as extension and flexion without significant difficulty. Cervical paraspinous muscle shows symmetrical on inspection with normal appearing cervical lordotic curvature, with palpation shows some moderate tenderness, but only diffusely, more on the left and the superior medial trapezius as well as left lateral and medial trapezius without atrophy, hypertrophy or asymmetry. The patient has full rotational motion of cervical spine, both laterally as well as extension and flexion without significant difficulty. Upper extremity deep tendon reflexes at 2+ biceps and triceps tendons. Motor exam is strong with facilitator strength rated at 5/5 as is bicep and tricep flexion bilaterally. Peripheral pulses are 2+ in radial distribution. EXTREMITIES: Lower extremities show deep tendon reflexes 2+ in the patellar, 1+ tendo-calcaneus tendons. Motor exam is strong with 5/5 dorsiflexion, extension, quadriceps and hamstring flexion. Peripheral pulses are 1+ posterior tibial. No peripheral edema is noted bilaterally in the lower extremities. Options were discussed with the patient. The patient's old chart was reviewed as his current medication regimen updated. Current review of systems updated today as well. We will proceed with preauthorization for lumbar epidural steroid injection. The patient has clinical L5-S1 radiculopathy in the left lower extremity. The patient will try Medrol Dosepak in the meantime. The patient was given instructions as well as side effects to be aware of with the medication. We will follow up in approximately one week to plan on lumbar epidural steroid injection at L5-S1 level, translaminar approach at that time. RANDELL HASTINGS MD DR: MAYUR/yuliana JOB#: [id number] / [id number]
== END ==
LOC: PNCL 07:32
PROVIDERS: ATTEND Anesthesiology
DX: M51.16 Intervertebral disc disorders with radiculopathy, lumbar region (principal); M50.10 Cervical disc disorder with radiculopathy, unspecified cervical region; M48.02 Spinal stenosis, cervical region
CPT/HCPCS: G0463

== ENCOUNTER → 2019-09-20 | Outpatient (CLI) | payer OTHER ==
[2019-08-13 13:50] VITALS: BP 154/89
[~2019-09-20] MED LIST changes: +IOHEXOL 180 MG/ML 10 ML VIAL. ONE; +methylPREDNISolone ACETATE 40 MG/ML VIAL. ONE; +methylPREDNISolone ACETATE 80 MG/ML VIAL. ONE
--- NOTE | 2019-09-20 14:23 | PAIN ---
DATE OF SERVICE: 09/20/2019 DIAGNOSES: Lumbar radiculopathy with lumbar degenerative disk disease, predominantly. HISTORY OF PRESENT ILLNESS: This is a 59-year-old male who returns for followup status post initial evaluation and preauthorization for lumbar epidural steroid injection. The patient has obtained that now and would like to proceed. The patient still has pain in the low back, left lower extremity as it was previously, posterior gluteus, posterior thigh, posterior calf, radiating, worse with walking, standing, changing positions. The patient reports it is tingling, sharp and shooting in quality, rates at 8 on a scale of 10 at its worst over the past week, 6 on average, 2 at its least and is a 6 today. The patient reports the Medrol Dosepak, we tried last visit did help decrease the pain in his leg, the pain was almost gone for the duration of the Medrol Ronaldo, but it returned once it was finished. The patient reports no new motor or sensory deficits. The patient reports it does awaken him from sleep at night, but only about once every 6 hours. PHYSICAL EXAMINATION: VITAL SIGNS: The patient's blood pressure is 112/74, pulse 87, respirations are 18, temperature 98.0 degrees Fahrenheit, height is 6 feet, weight is 297 pounds. GENERAL: The patient is awake, alert, oriented, appropriate, very pleasant demeanor. HEENT: Shows normocephalic, atraumatic. Extraocular movements are intact and symmetrical. Oral cavity shows mucous membranes moist and pink. Dentition is intact. NECK: Shows anterior throat is supple. Anterior neck shows full rotational motion of cervical spine. CHEST: Shows normal on inspection. Breath sounds clear to auscultation bilaterally. HEART: Shows S1, S2 clear. No murmurs auscultated. ABDOMEN: Soft, obese, nontender, nondistended. BACK: Shows spine grossly in the midline. Normal appearing thoracic kyphosis and lumbar lordotic curvature. Lumbar paraspinous muscle shows symmetrical on inspection, with palpation shows some moderate tenderness diffusely in the low lumbar distribution bilaterally, but only diffusely without significant radiation. The patient shows full rotation both laterally as well as extension and flexion of lumbar spine without significant pain or difficulty. EXTREMITIES: Lower extremities show deep tendon reflexes 2+ in the patellar, 1+ tendo-calcaneus tendons. Motor exam is strong with 5/5 dorsiflexion, extension, quadriceps and hamstring flexion symmetrical. Peripheral pulses are 1+ posterior tibia. No peripheral edema is noted bilaterally. Options were discussed with the patient. The patient's old chart was reviewed as his current medication regimen updated. Current review of systems updated today as well. We will proceed with a lumbar epidural steroid injection today with fluoroscopic guidance. Risks were discussed including but not limited to bleeding, infection, possibility of epidural hematoma and subsequent neurological compromise, dural puncture, headaches, spinal cord and/or nerve damage, side effects of steroid medication and poor results regarding pain control. The patient understands and wished to proceed. The patient will return to clinic in approximately 2 weeks for followup. He was counseled as to return appointment, activity level and side effects to be aware of. DIAGNOSES: Lumbar radiculopathy with lumbar degenerative disk disease. PROCEDURE: Lumbar epidural steroid injection, translaminar approach L5-S1 level using C-arm fluoroscopic guidance under sterile prep and drape using local anesthetic. MEDICATION INJECTED: A total of 120 mg Depo-Medrol plus 10 mL of preservative-free normal saline and 2 mL of contrast. CONDITION AT DISCHARGE: Stable. The patient tolerated the procedure well, had no complications. RANDELL HASTINGS MD DR: MAYUR/nts JOB#: [id number] / [id number]
== END ==
LOC: PNCL 08:23
PROVIDERS: ATTEND Anesthesiology
DX: M51.16 Intervertebral disc disorders with radiculopathy, lumbar region (principal)
CPT/HCPCS: 62323; J1030; J1040; Q9965

== ENCOUNTER → 2019-10-25 | Outpatient (CLI) | payer OTHER ==
[2019-08-13 13:50] VITALS: BP 154/89
--- NOTE | 2019-10-25 11:54 | PAIN ---
DATE OF SERVICE: 10/25/2019 PROGRESS NOTE FOR PAIN CLINIC DIAGNOSES: 1. Lumbar radiculopathy with lumbar degenerative disk disease. 2. Cervical radiculopathy with cervical degenerative disk disease. HISTORY OF PRESENT ILLNESS: The patient is a 59-year-old male who returns for followup status post lumbar epidural steroid injection x 1. The patient reports about 50% improvement overall in the low back left lower extremity. The patient reports increased activity with greater ease and comfort, distance walking, has been greater much easier with traveling, and getting around day today. The patient reports he still sleeps well at night, does not awaken him from sleep. The patient rates his pain as a 7 on a scale of 10 at its worst over the past week, 4 on average 4 at its least and is a 4 today. The patient reports some tingling in the left foot, dull aching in the back and some shooting in the left leg, mostly in posterior gluteus, but also in the foot on the left side with walking. The patient reports no new motor or sensory deficits, no new bowel or bladder incontinence or other complaints. PHYSICAL EXAMINATION: VITAL SIGNS: The patient's blood pressure 109/76, pulse 61, respirations 16, temperature 97.6 degrees Fahrenheit, weight is 291 pounds. GENERAL: The patient is awake, alert, oriented, appropriate, very pleasant demeanor. HEENT: Shows normocephalic, atraumatic. Extraocular movements are intact and symmetrical. Oral cavity shows mucous membranes moist and pink. Dentition is intact. NECK: Shows anterior throat supple without palpable lymphadenopathy noted. Swallow reflex symmetrical. CHEST: Shows normal on inspection. Breath sounds are clear to auscultation bilaterally. HEART: Shows S1, S2 clear. No murmurs auscultated. ABDOMEN: Soft, nontender, nondistended. No palpable organomegaly is noted. No rebound or guarding demonstrated. BACK: Shows spine grossly in the midline. Normal appearing thoracic kyphosis and some slight flattening of lumbar lordotic curvature. Lumbar paraspinous muscle shows symmetrical on inspection, on palpation shows some moderate tenderness diffusely bilaterally and diffusely without significant radiation. EXTREMITIES: The patient's lower extremities show deep tendon reflexes at 2+ in the patellar, 1+ tendo-calcaneus tendons. Motor exam is strong with 5/5 dorsiflexion, extension, quadriceps and hamstring flexion symmetrical. Peripheral pulses are 1+ posterior tibial. No peripheral edema is noted bilaterally. Options were discussed with the patient. The patient's old chart was reviewed as his current medication regimen updated. Current review of systems updated today as well. We will proceed with a second in the series of lumbar epidural steroid injection today with fluoroscopic guidance. Risks were again discussed including, but not limited to bleeding, infection, possibility of epidural hematoma, subsequent neurological compromise, dural puncture, headaches, spinal cord and/or nerve damage, side effects of steroid medication and poor results regarding pain control. The patient understands and wished to proceed. The patient will return to clinic in approximately 2 weeks for followup. He was counseled on return appointment, activity level and side effects to be aware of. DIAGNOSIS: Lumbar radiculopathy with lumbar degenerative disk disease. PROCEDURE: Lumbar epidural steroid injection, translaminar approach at L5-S1 level using C-arm fluoroscopic guidance under sterile prep and drape using local anesthetic. MEDICATION INJECTED: A total of 120 mg Depo-Medrol plus 10 mL of preservative-free normal saline and 2 mL of contrast. CONDITION AT DISCHARGE: Stable. The patient tolerated the procedure well, had no complications. RANDELL HASTINGS MD DR: MAYUR/yuliana JOB#: [id number] / [id number]
== END ==
LOC: PNCL 07:26
PROVIDERS: ATTEND Anesthesiology
DX: M51.16 Intervertebral disc disorders with radiculopathy, lumbar region (principal); M50.10 Cervical disc disorder with radiculopathy, unspecified cervical region
CPT/HCPCS: 62323; J1030; J1040; Q9965

== ENCOUNTER 2019-11-13 05:49 | Inpatient (IN) | payer OTHER ==
[~2019-11-13] VITALS: Ht 182.9 cm; Wt 136.1 kg
[2019-11-13] VITALS (9 sets, daily range): BP systolic 93–118; BP diastolic 60–72
[~2019-11-13 05:49] MED LIST changes: -IOHEXOL 180 MG/ML 10 ML VIAL. ONE; -methylPREDNISolone ACETATE 40 MG/ML VIAL. ONE; -methylPREDNISolone ACETATE 80 MG/ML VIAL. ONE
[2019-11-13] MEDS ORDERED: ROCURONIUM 50 MG/5 ML VIAL. ONE (05:54)
[2019-11-13] MEDS ORDERED: DEXAMETHASONE SOD PHOS 4 MG/ML VIAL ONE ×2 (05:55→11:36)
[2019-11-13] MEDS ORDERED: ONDANSETRON PF 4 MG/2 ML VIAL. ONE (05:55)
[2019-11-13] MEDS ORDERED: PHENYLEPHRINE 10 MG/ML VIAL. ONE (05:55)
[2019-11-13] MEDS ORDERED: PROPOFOL 20 ML IV ONE ×2 (05:55→09:18)
[2019-11-13] MEDS ORDERED: SEVOFLURANE 61 TO 120 MINUTES. IH ONE (05:55)
[2019-11-13] MEDS ORDERED: LIDOCAINE 2% PF 5 ML VIAL. ONE (05:55)
[2019-11-13] MEDS ORDERED: KETOROLAC 30 MG/ML VIAL. ONE (05:55)
[2019-11-13] MEDS ORDERED: fentaNYL PF VIAL 100 MCG/2 ML VIAL ONE (05:55)
[2019-11-13] MEDS ORDERED: ceFAZolin SODIUM 3 GM in IV DEXTROSE 5% 100ML 100 ML IV PRN (06:00)
[2019-11-13] MEDS ORDERED: fentaNYL PF VIAL 100 MCG/2 ML VIAL IV PRN (07:00)
[2019-11-13] MEDS ORDERED: ONDANSETRON PF 4 MG/2 ML VIAL. IV PRN (07:00)
[2019-11-13] MEDS ORDERED: IV RINGERS,LACTATED 1000ML 1,000 ML IV SCH (07:00)
[2019-11-13] MEDS ORDERED: PROCHLORPERAZINE 10 MG/2 ML VIAL. IV PRN (07:00)
[2019-11-13] MEDS ORDERED: MIDAZOLAM HCL/PF 2 MG/2 ML VIAL. ONE (07:09)
[2019-11-13] MEDS ORDERED: DEXAMETHASONE SOD PHOS 20 MG/5 ML VIAL. ONE (07:09)
[2019-11-13] MEDS ORDERED: EPINEPHrine 1 MG/ML VIAL ONE (07:09)
[2019-11-13] MEDS ORDERED: LIDOCAINE 1% PF 2 ML VIAL. ONE ×2 (07:09→11:35)
[2019-11-13] MEDS ORDERED: BUPIVACAINE MPF 0.5% 30 ML VIAL. ONE ×3 (07:09→11:35)
[2019-11-13] MEDS ORDERED: LIDOCAINE 1% 20 ML VIAL. ONE (07:11)
[2019-11-13] MEDS ORDERED: EPINEPHrine VIAL 30 MG/30 ML VIAL ONE (07:11)
[2019-11-13] MEDS ORDERED: SUCCINYLCHOLINE 200 MG/10 ML VIAL. ONE (07:21)
--- NOTE | 2019-11-13 07:38 | DISCH ---
DISCHARGE INSTRUCTIONS Condition on Discharge Condition on Discharge: Stable Activity After Discharge Activity Instructions for Disc: Activity as tolerated, Other ROM activity Other activity instructions: arm to remain in sling Bathing Instructions: Shower-keep dressing dry Lifting Instructions after Dis: No heavy lifting, No pulling or pushing, Do not lift >10 pounds Driving Instructions after Dis: Do not drive Weight Bearing Status after Di: No restrictions, Non weight bearing Diet after Discharge Diet after Discharge: Cardiac, Regular Diet Texture: Regular Wound Incision Care Wound/Incision Care: Ice to area for comfort, Keep wound/cast CDI, Change dressing Contacting the [facility] after DC Call your doctor for: Concerns you may have Follow-Up Follow up with: Jurgen in 2 wks Treatment/Equipment after DC Adaptive Equipment Issued: None KSENIA KENNY II, MD Nov 13, 2019 07:38
[2019-11-13] MEDS ORDERED: GLYCOPYRROLATE 1 MG/5 ML VIAL. ONE (08:24)
[2019-11-13] MEDS ORDERED: SEVOFLURANE > 120 MINUTES. IH ONE (08:26)
--- NOTE | 2019-11-13 09:48 | PDOC4 ---
Operative Note Operative Note Date of procedure: 11/13/2019 Surgeon: Alberto Kenny Asst.: Williams Mccann Preoperative diagnosis: Recurrent left shoulder rotator cuff tear Postoperative diagnosis: Same Procedure performed: Arthroscopic repair of large rotator cuff tear Complications: None Anesthesia: Gen. plus regional nerve block Blood loss: 10 mL Findings: #1 grade 2-3 changes at humeral head #2 degenerative fraying of labrum #3 large crescent shaped rotator cuff tear involving supraspinatus and infraspinatus #4 no loose bodies Components inserted: 3 helacoil suture anchors, 2 footprint anchors laterally Reason for procedure: Patient is very pleasant gentleman underwent rotator cuff repair with myself while ago. He had progressed well until he had a new injury, MRI was obtained after clinical exam was consistent with possible re-tears. MRI confirmed my suspicion. We had a discussion of the risks, benefits, and alternatives to the above surgery and he wished to proceed. Description of procedure: Patient was greeted in the preoperative area by myself for the correct extremity was verified and marked. He had placement of a regional nerve block by the anesthesiology team. He was taken back to the operative suite, started on his antibiotics as he was brought back. Once in the operative room, he was transferred gently supine to the operative room table, underwent successful induction of a general anesthetic and then was sat up in a beachchair position maintaining his C-spine in a neutral position and a large pad under his legs. He was secured to the bed with all pressure points padded. We then proceeded prep and drape left upper extremity and shoulder girdle in our usual sterile fashion and conducted our standard preoperative timeout. Ioban was used at the periphery of the drapes. I palpated and marked surface anatomy then used a spinal needle to localize a posterior superior portal and incised skin in accordance with this, followed by introducing the blunt arthroscopic trocar into the glenohumeral joint. . I then used a spinal needle to localize an anterosuperior portal and incised skin in accordance with this and dilated this hole. I introduce my probe and I then I conducted my diagnostic arthroscopy with the above-noted findings. From the intra-articular vantage point, I used a spinal needle to localize a lateral portal to debride some of the footprint and rotator cuff tendon as well as labrum. After this, I repositioned the camera into the subacromial space, there was abundant fibrotic tissue and adhesions. I spent quite a bit of time taking these down with electrocautery and appreciating the extent of the tear. I debrided some more the leading edge as well as footprint. After I was confident I debrided adequate bursal tissue and release fibrous adhesions, I tested cuff mobility with a regular grasper he did have reasonable mobility enough to proceed with repair. I then placed my trocar through the lateral portal and created an accessory posterolateral portal for suture management. I then placed 3 helical anchors, my more posterior one was more medial than I would've normally placed it due to his tendon mobility. After this, I used the suture passing device to shuttle the sutures through in a simple configuration. I then delivered all suture ends through the anterosuperior portal and proceeded to tie these down using arthroscopic knot- tying techniques. I cut the posterior most two, and then incorporated a pair of sutures from my anterior and middle suture anchor into one of the footprints, followed by the remainder of the 2 suture limbs pairs through another footprint. His rotator cuff tear was stable to gentle rotation of his arm, I was happy with how the repair sat down. After this, all excess arthroscopic fluid and the arthr oscopic instrumentation removed. He tolerated surgery well. No complications. At the conclusion, the portals were closed with simple interrupted 3-0 nylon, the shoulder was cleansed and dried and sterile dressings applied followed by an abduction pillow sling. He was laid supine and transferred gently supine to the recovery room cart and taken to PACU in a stable and extubated condition. Postoperative plan is to allow him to rest his arm, he'll be nonweightbearing. I will see him back in 2 weeks, sooner should a problem arise, and we will get him started on physical therapy at that time ALBERTO KENNY II, MD Nov 13, 2019 09:48
[2019-11-13] MEDS ORDERED: OXYC-325 PO (10:21)
[2019-11-13] MEDS ORDERED: ONDA8TAB9 SL (10:22)
[2019-11-13] MEDS ORDERED: DOCU-109 PO (10:23)
[2019-11-13] MEDS: fentaNYL PF VIAL 100 MCG/2 ML VIAL IV PRN ×2 (10:32→10:42)
[2019-11-13] MEDS ORDERED: oxyCODONE/APAP 5/325 1 TAB TABLET PO ONE (10:45)
[2019-11-13] MEDS: MORPHINE SULFATE 2 MG/ML VIAL. IV PRN ×2 (10:51→11:05)
[2019-11-13] MEDS: HYDROmorphone 2 MG/ML VIAL IV PRN ×4 (11:26→11:42)
[2019-11-13] MEDS ORDERED: EPINEPHrine SYRINGE 1 MG/10 ML SYRINGE ONE (11:35)
[2019-11-13] MEDS: IV NORMAL SALINE 1000ML BAG 1,000 ML IV SCH (15:44)
[2019-11-13] MEDS ORDERED: 0.9 % SODIUM CHLORIDE 10 ML DISP.SYRIN. IV PRN (15:45)
[2019-11-13] MEDS ORDERED: oxyCODONE/APAP 5/325 1 TAB TABLET PO PRN (15:45)
[2019-11-13] MEDS ORDERED: CALCIUM CARBONATE 500 MG TAB.CHEW PO PRN (15:45)
[2019-11-13] MEDS ORDERED: PROCHLORPERAZINE 5 MG TABLET. PO PRN (15:45)
[2019-11-13] MEDS ORDERED: DEXTROSE 50% 25 GM / 50ML DISP.SYRIN. IV PRN (15:45)
[2019-11-13] MEDS ORDERED: traMADol 50 MG TABLET PO PRN ×2 (15:45)
[2019-11-13] MEDS ORDERED: ZOLPIDEM 5 MG TABLET. PO PRN (15:45)
[2019-11-13] MEDS ORDERED: IV DEXTROSE 5% 250 ML BAG. IV PRN (15:45)
[2019-11-13] MEDS ORDERED: NALOXONE 0.4 MG/ML VIAL. IV PRN (15:45)
[2019-11-13] MEDS ORDERED: MORPHINE SULFATE 2 MG/ML VIAL. IV PRN (15:45)
[2019-11-13] MEDS ORDERED: METOCLOPRAMIDE HCL 10 MG/2 ML VIAL. IV PRN (15:45)
[2019-11-13] MEDS: IV DEXTROSE 5 %-0.45 % NACL 1,000 ML IV SCH (16:25)
--- NOTE | 2019-11-13 19:03 | NUR ---
Ambulated to bathroom with SBA, voided, sling readjusted for comfort, c/o slight nausea with no emesis
[2019-11-13] MEDS: METOPROLOL TART IMMED RELEASE 25 MG TABLET. PO SCH (21:00)
[2019-11-13] MEDS: DOCUSATE SODIUM 100 MG CAPSULE. PO SCH (21:15)
[2019-11-13] MEDS: oxyCODONE/APAP 5/325 1 TAB TABLET PO PRN (23:12)
[2019-11-14] MEDS: IV DEXTROSE 5 %-0.45 % NACL 1,000 ML IV SCH ×3 (02:53→21:44)
[2019-11-14 03:14] VITALS: BP 110/63
[2019-11-14] MEDS: oxyCODONE/APAP 5/325 1 TAB TABLET PO PRN ×2 (05:43→12:27)
[2019-11-14] MEDS ORDERED: MAGNESIUM HYDROXIDE 2,400 MG/30 ML ORAL.SUSP. PO PRN (06:00)
--- NOTE | 2019-11-14 06:02 | NUR ---
pt slept most of the night continous pulse oximeter on O2 sat between 95-98% @ 3 liters per nasal cannula during the night stated got light headed everytime his up to use the bathroom held BP meds due to low BP no further complain of nausea pt stated sensation back on his left upper and lower arm able to wiggle left fingers stated still tingly rating pain as 5 throbbing in nature @ times more alert @ this time.
[2019-11-14 06:10] VITALS: BP 112/68
--- NOTE | 2019-11-14 08:47 | PDOC ---
ORTHO PROGRESS NOTES Subjective Ed tells me that he is still having some difficulty taking a full breath. He feels like his pain is tolerable. He is also complaining of some dizziness and lightheadedness when standing. Vitals Vital Signs Date Time Temp Pulse Resp B/P (MAP) Pulse Ox O2 Delivery O2 Flow Rate FiO2 11/14/19 06:34 20 96 Nasal Cannula 3.0 11/14/19 06:10 97.5 60 112/68 (83) 97.5 Labs Laboratory Tests Test 11/13/19 06:20 25-Hydroxy Vitamin D Total 19.0 ng/mL (30-100) Notes He is awake and alert. Nasal cannulas in place for supplemental oxygen. Sling is in place to his left upper extremity. Normal motor and sensation are present in his hand Assessment and Plan He is still requiring oxygen, given his dizziness and lightheadedness as well as recent surgery and is overall status for now, I did change him to full and patient has I think he needs likely one more day of inpatient care regarding his oxygen use and blood pressure monitoring. KSENIA KENNY II, MD Nov 14, 2019 08:47
[2019-11-14] MEDS: METOPROLOL TART IMMED RELEASE 25 MG TABLET. PO SCH ×2 (09:00→21:00)
[2019-11-14] MEDS: hydroCHLOROthiazide 25 MG TABLET PO SCH (09:00)
[2019-11-14] MEDS: SENNOSIDES/DOCUSATE 8.6/50MG TABLET. PO SCH (09:00)
[2019-11-14] MEDS: MULTIVITAMIN with MINERAL TABLET. PO SCH (09:00)
[2019-11-14] MEDS: LOSARTAN POTASSIUM 50 MG TABLET. PO SCH (09:00)
[2019-11-14] MEDS: DOCUSATE SODIUM 100 MG CAPSULE. PO SCH ×2 (09:00→21:22)
[2019-11-14] MEDS: CHOLECALCIFEROL (VITAMIN D3) 5,000 UNIT CAPSULE PO SCH (09:00)
[2019-11-14] MEDS: FUROSEMIDE 40 MG TABLET. PO SCH (09:00)
--- NOTE | 2019-11-14 09:00 | NUR ---
C/o nausea and headache after therapy. BP105/57. Cold cloth placed forehead and crackers. Offered nausea medicine, refused. Stated nausea is easing off. Cont. monitor.
--- NOTE | 2019-11-14 09:00 | NUR ---
Morning medicine held due to pt's nausea and low bp. Cont. monitor.
[2019-11-14] MEDS ORDERED: POLYVINYL ALCOHOL 1.4% OPHTH SOLUTION 15ML BOTTLE. OU PRN (10:15)
--- NOTE | 2019-11-14 11:40 | NUR ---
Ambulated to bathroom with standby assist. Voided and return to bed. C/o nausea and pain. Reglan IV given. Will give Percocet afterwards. Cont. monitor.
[2019-11-14] MEDS: IV NORMAL SALINE 1000ML BAG 1,000 ML IV SCH (15:44)
[2019-11-14] MEDS ORDERED: BISACODYL 10 MG SUPP.RECT. PR PRN (16:00)
--- NOTE | 2019-11-14 17:59 | NUR ---
Feeling better, ate 100% dinner without any nausea. Rating pain at "5". Percocet po given. Cont. monitor.
[2019-11-14 18:02] VITALS: BP 106/64
[2019-11-14] MEDS: oxyCODONE/APAP 10/325 1 TAB TABLET PO PRN ×2 (18:22→21:22)
--- NOTE | 2019-11-14 18:34 | NUR ---
Moving around and pain has increased to "8". Notified and received orders to increase pain medicine. Cont. monitor.
[2019-11-15] MEDS: oxyCODONE/APAP 10/325 1 TAB TABLET PO PRN ×3 (01:47→08:49)
[2019-11-15 06:00] VITALS: BP 150/92
[2019-11-15] MEDS: IV DEXTROSE 5 %-0.45 % NACL 1,000 ML IV SCH (07:44)
[2019-11-15] MEDS: SENNOSIDES/DOCUSATE 8.6/50MG TABLET. PO SCH (08:42)
[2019-11-15] MEDS: MULTIVITAMIN with MINERAL TABLET. PO SCH (08:42)
[2019-11-15] MEDS: CHOLECALCIFEROL (VITAMIN D3) 5,000 UNIT CAPSULE PO SCH (08:42)
[2019-11-15] MEDS: DOCUSATE SODIUM 100 MG CAPSULE. PO SCH (08:42)
[2019-11-15] MEDS: METOPROLOL TART IMMED RELEASE 25 MG TABLET. PO SCH (08:42)
[2019-11-15] MEDS: hydroCHLOROthiazide 25 MG TABLET PO SCH (08:43)
[2019-11-15] MEDS: LOSARTAN POTASSIUM 50 MG TABLET. PO SCH (08:43)
[2019-11-15] MEDS: FUROSEMIDE 40 MG TABLET. PO SCH (08:44)
--- NOTE | 2019-11-15 09:00 | NUR ---
"Feeling better today". No further nausea or dizziness. The pain is tolerable with pain meds and ice. BP WNL. AM meds given. Cont. monitor.
[2019-11-15 12:35] VITALS: BP 134/68
--- NOTE | 2019-11-15 12:52 | NUR ---
Discharge instructions given. Answered questions and concerns. Verbalized understanding. Pt discharged home accompanied by family.
--- NOTE | 2019-11-15 13:00 | PDOC ---
ORTHO PROGRESS NOTES Subjective He feels like his breathing is back to normal, his pain is tolerable Vitals Vital Signs Date Time Temp Pulse Resp B/P (MAP) Pulse Ox O2 Delivery O2 Flow Rate FiO2 11/15/19 12:35 97.6 60 16 134/68 (90) 93 Room Air 97.6 11/14/19 07:50 3.0 Notes He is awake and alert, left upper extremity is in a sling. Normal motor and sensation are present Assessment and Plan He'll be discharged today. Nonweightbearing 6 weeks. No formal PT for 2 weeks. I'll see him in 2 weeks in my clinic KSENIA KENNY II, MD Nov 15, 2019 13:00
== END 2019-11-15 12:52 | disposition home or self-care (01) | DRG 512 ==
LOC: SURG 05:49 → 4 SOUTHEST 14:57 → OBSVTOIN 11-14 08:45
PROVIDERS: ADMIT Orthopaedic Surgery Sports Medicine; ATTEND Orthopaedic Surgery Sports Medicine
PROC: 0LQ24ZZ Repair Left Shoulder Tendon, Percutaneous Endoscopic Approach (ICD-10-PCS; principal; 2019-11-13 07:30)
DX: M75.102 Unspecified rotator cuff tear or rupture of left shoulder, not specified as traumatic (principal); Z79.899 Other long term (current) drug therapy
CPT/HCPCS: 36415; 82306; A7015; C1713; C1782; G0378; G0379; J0171; J0330; J0696; J0780; J1100; J1170; J1885; J2001; J2250; J2270; J2405; J2704; J2765; J3010; J3490; J7120; Q0164; 97535

== ENCOUNTER → 2021-02-09 | Outpatient (CLI) | payer OTHER ==
[~2021-02-09] MED LIST changes: +ALLO100T PO; +AMLO-186 PO; -AMLO5TAB10 PO; +ASPI-630 PO; +BUME1TAB3 PO; +NAPR500T8 PO; +ONDA8TAB9 SL; +OXYC-325 PO; +SACU1TAB7 PO; +TADA5TAB PO; +TAMS0.4C97 PO
--- NOTE | 2021-02-10 09:50 | RAD ---
Examination: MRI of the left forefoot without contrast HISTORY: History of pain, swelling about the first metatarsal COMPARISON: None available TECHNIQUE: Multiplanar, multisequence MR imaging of the left forefoot were performed without contrast FINDINGS: Moderate hallux valgus with mild soft tissue prominence identified medial to the head of the first me tatarsal likely bunion changes with small subchondral cystic changes identified in the medial segment is identified likely degenerative changes. Bipartite medial sesamoid with mild cystic changes in the proximal portion. Minimal amount of fluid i dentified in the extensor hallucis longus tendon likely mild tenosynovitis. Mild soft tissue edema identified in the extensor portion of the distal foot. IMPRESSION: 1. Moderate hallux valgus with mild soft tissue prominence identified medial to the head of the firs t metatarsal likely bunion changes. 2. Minimal amount of fluid identified in the extensor hallucis longus tendon likely mild tenosynovit is. 3. Bipartite medial sesamoid with mild cystic changes in the proximal portion of the sesamoid. Electronically signed by: Braxton Chand MD (02/10/2021 9:48 AM) [id number]
== END ==
LOC: MRI 08:53
PROVIDERS: ATTEND Podiatrist Foot & Ankle Surgery
DX: M20.12 Hallux valgus (acquired), left foot (principal); M25.872 Other specified joint disorders, left ankle and foot; R22.42 Localized swelling, mass and lump, left lower limb
CPT/HCPCS: 73718

== ENCOUNTER → 2021-04-29 | Outpatient (CLI) | payer OTHER ==
[~2021-04-29] MED LIST changes: +BUPIVACAINE MPF 0.25% 10 ML VIAL. ONE; +HYDR-2765 PO; +methylPREDNISolone ACETATE 40 MG/ML VIAL. ONE
--- NOTE | 2021-04-29 15:24 | PDOC ---
Progress Note - Pain Clinic Date of Service: DOS: DATE: 04/29/21 TIME: 15:12 Diagnosis: Dx: Lumbar radiculopathy with lumbar degenerative disease Cervical radiculopathy cervical degenerative disease Bunion with first metatarsophalangeal joint osteoarthritis History or Present Illness: HPI: 60-year-old male returns in follow-up status post lumbar epidural steroid injections most recently October 2019 patient did very well with near 100% improvement that lasted to this day. Patient reports new complaint today of left bunion on the first metatarsal phalangeal joint with significant pain with walking standing changing positions difficulty sleeping and is waiting podiatry surgery which would not be for another 2 months or so. Patient is in significant pain with all of his daily activities patient works on his feet all of his working day and is very active with significant pain patient has been wearing a boot on the left leg which is causing some heat rash on the leg as well has not significantly decreasing the pain patient reports pain is a 9 on scale 10 is worse over the past week 6 on average 6 its least and 7 today tingling aching sharp sometimes and numbness in the toes as well. She reports no loss of motor function but significant difficulty with walking standing and has been waking her from sleep frequently. Physical Exam: VS: Blood pressure 135/70 pulse 69 respirations 18 temperature 98.1 F height is 6 foot weight is 295 pounds PE: PHYSICAL EXAMINATION: GENERAL: The patient is awake, alert, oriented, appropriate, very pleasant in demeanor. HEENT: Shows normocephalic, atraumatic. Extraocular movements are intact and symmetrical. Oral cavity: Mucous membranes moist and pink. NECK: Shows anterior throat supple without palpable lymphadenopathy noted. Swallow reflex symmetrical. CHEST: Shows normal on inspection. Breath sounds are clear bilaterally, distant but no rales or rhonchi. HEART: Shows S1, S2 clear. No murmurs auscultated. ABDOMEN: Soft, nontender, nondistended, obese. No palpable organomegaly is noted. BACK: Shows spine grossly in the midline. Normal-appearing cervical lordotic curvature. There is slightly increased thoracic kyphosis, some minor flattening of the lumbar lordotic curvature. Lumbar paraspinous muscles show symmetrical on inspection, on palpation shows some moderate tenderness diffusely throughout the upper, middle and lower distribution of the paraspinous muscles without specific trigger points, without radiation of pain. The patient has good rotational motion of the lumbar spine, both laterally as well as extension and flexion without significant difficulty. No tenderness over the spinous processes, sacrum or sacroiliac regions. EXTREMITIES: Lower extremities show deep tendon reflexes 2+ in the patellar and tendo calcaneus tendons. Motor exam is 5 on a scale of 5 with right dorsiflexion, extension, quadriceps and hamstring flexion and 5/5 on the left. Peripheral pulses are 1 posterior tibial. No peripheral edema is noted bilaterally. Lower extremities are warm and dry. Patient's left foot show significant bunion with medially displaced first phalanx. Slight erythematous changes noted on the toe although no rashes identified. Patient has decreased sharp dull discrimination over the entire surface of the great toe on the left side. Mild tenderness over the metatarsal phalangeal joint on the plantar surface with good range of motion both actively and passively at the metatarsophalangeal joint. SKIN: Shows warm and dry, good turgor. No edema. No sores, rashes or bruising throughout. Procedure: Procedure: Options were discussed with the patient. Patient chart was reviewed his current medication regimen updated current review of systems updated today as well. We will proceed with left first metatarsophalangeal intra-articular joint injection with fluoroscopic guidance. Risks were discussed including but not limited to bleeding infection possibility of intravascular injection sequelae spread local anesthetic numbness side effects steroid medication exposure fluoroscopy and portals regarding pain control. Patient understands wished to proceed. Return to clinic in approximate 2 weeks for follow-up, was counseled as to return appointment activity level and side effects to be aware of. Medication Injected: Med Injected: Patient supine position using C-arm fluoroscopic guidance under sterile prep and drape patient's left foot was visualized and using a 25-gauge needle was ad vanced into the left first metatarsophalangeal joint with direct fluoroscopic visualization. Negative aspiration was noted, at this time 1 cc of contrast was injected with good spread within the joint without washout or vascular uptake, next a solution of 2 cc 0.25% bupivacaine and 40 mg Depo-Medrol was then injected into the joint. Needle was withdrawn and sterile bandage was applied. Patient tolerated the procedure well and had no complications. Condition at Discharge: Condition at Discharge: Condition at discharge stable, patient already procedure well and had no complications. RANDELL HASTINGS MD Apr 29, 2021 15:24
--- NOTE | 2021-04-29 15:24 | PDOC4 ---
Procedure Note: Procedure Note: Patient was consented for left first metatarsophalangeal intra-articular joint injection with fluoroscopic guidance. Risks were discussed including but not limited to bleeding infection possible intravascular ejection sequelae spread local episodic numbness side effects steroid medication exposure to fluoroscopy and poor results regarding pain control. Patient understands wished to proceed. Patient supine position using C-arm fluoroscopic guidance under sterile prep and drape patient's left foot was visualized and using a 25-gauge needle was advanced into the left first metatarsophalangeal joint with direct fluoroscopic visualization. Negative aspiration was noted, at this time 1 cc of contrast was injected with good spread within the joint without washout or vascular uptake, next a solution of 2 cc 0.25% bupivacaine and 40 mg Depo-Medrol was then injected into the joint. Needle was withdrawn and sterile bandage was applied. Patient tolerated the procedure well and had no complications. RANDELL HASTINGS MD Apr 29, 2021 15:24
== END | disposition home or self-care (01) ==
LOC: PNCL 14:09
PROVIDERS: ATTEND Anesthesiology
DX: M19.072 Primary osteoarthritis, left ankle and foot (principal); M51.16 Intervertebral disc disorders with radiculopathy, lumbar region; M50.10 Cervical disc disorder with radiculopathy, unspecified cervical region; M21.612 Bunion of left foot; E78.00 Pure hypercholesterolemia, unspecified; G47.30 Sleep apnea, unspecified; E66.9 Obesity, unspecified; F41.9 Anxiety disorder, unspecified; F32.9 Major depressive disorder, single episode, unspecified; I11.0 Hypertensive heart disease with heart failure; I50.9 Heart failure, unspecified; M10.9 Gout, unspecified; Z87.891 Personal history of nicotine dependence; Z79.82 Long term (current) use of aspirin; Z79.899 Other long term (current) drug therapy; Z98.890 Other specified postprocedural states; Z82.49 Family history of ischemic heart disease and other diseases of the circulatory system
CPT/HCPCS: 20600; 77002; J1030; J3490

== ENCOUNTER → 2021-05-13 | Outpatient (CLI) | payer OTHER ==
[~2021-05-13] MED LIST changes: -BUPIVACAINE MPF 0.25% 10 ML VIAL. ONE; -methylPREDNISolone ACETATE 40 MG/ML VIAL. ONE
--- NOTE | 2021-05-13 14:41 | PDOC4 ---
Procedure Note: ICD 10 Code: ICD 10 Code: M1 9.072 Procedure Note: Patient was consented for left first metatarsophalangeal joint injection with fluoroscopic guidance. Risk were discussed including but not limited to bleeding infection possibility of intravascular injection sequelae spread of local anesthetic numbness side effects steroid medication exposure fluoroscopy and poor results regarding pain control. Patient understands wished to proceed. Under sterile prep and drape patient in supine position using C-arm fluoroscopic guidance patient's left foot was visualized in the first metatarsophalangeal joint was identified using a 25-gauge needle was entered under direct fluoroscopic visualization and after negative aspiration, 0.5 cc of contrast was injected with good local spread without washout. At this time solution of 2 cc 0.25% bupivacaine and 80 mg Depo-Medrol was then injected into the metatarsophalangeal joint. Patient tolerated the procedure well and had no complications. RANDELL HASTINGS MD May 13, 2021 14:41
--- NOTE | 2021-05-13 14:41 | PDOC ---
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 Patient reports about 50% improvement much more comfortable with walking standing climbing stairs using his foot to balance patient reports still significant pain in the medial aspect of the left foot in the metatarsal area at the area of the bunion but much better after the injection patient reports began to return over just a few days ago rates his pain as a 9 on scale 10 is worse over the past week 8 on average for its least and is a 8 today. Patient reports he is still wearing supportive boot which does begin to give him some back pain with ambulation. Patient reports no new motor or sensory deficits no new bowel or bladder incontinence patient reports that he does not awaken from sleep at night. Patient reports he is no longer taking any of his hydrocodone as the pain has been significantly reduced after his injection. Physical Exam: VS: Blood pressure is 132/75 pulse 66 respirations 18 temperature 97.8 F height is 6 foot weight is 297 pounds PE: PHYSICAL EXAMINATION: GENERAL: The patient is awake, alert, oriented, appropriate, very pleasant in demeanor HEENT: Shows normocephalic, atraumatic. Extraocular movements are intact and symmetrical. Oral cavity: Mucous membranes moist and pink. Dentition is intact. NECK: Shows anterior throat supple without palpable lymphadenopathy noted. Swallow reflex symmetrical. CHEST: Shows normal on inspection. Breath sounds are clear bilaterally, distant but no rales or rhonchi. HEART: Shows S1, S2 clear. No murmurs auscultated. ABDOMEN: Soft, nontender, nondistended, obese. No palpable organomegaly is noted. BACK: Shows spine grossly in the midline. Normal-appearing cervical lordotic curvature. There is slightly increased thoracic kyphosis, some minor flattening of the lumbar lordotic curvature. Lumbar paraspinous muscles show symmetrical on inspection, on palpation shows some moderate tenderness diffusely throughout the upper, middle and lower distribution of the paraspinous muscles without specific trigger points, without radiation of pain. The patient has good rotational motion of the lumbar spine, both laterally as well as extension and flexion without significant difficulty. EXTREMITIES: Lower extremities show deep tendon reflexes 2 in the patellar and tendo calcaneus tendons. Motor exam is 5 on a scale of 5 with right dorsiflexion, extension, quadriceps and hamstring flexion and 5/5 on the left. Peripheral pulses are 1+ posterior tibial. No peripheral edema is noted bilaterally. Lower extremities are warm and dry. Patient's left foot shows obvious deformity with pointing at the first metatarsophalangeal joint with some mild erythema of the skin. With palpation some moderate tenderness mainly on the plantar surface but also on the medial aspect but without radiation. SKIN: Shows warm and dry, good turgor. No edema. No sores, rashes or bruising throughout. Procedure: Procedure: Options were discussed with patient. Patient chart reviews his current medication regimen updated current review of systems updated today as well. We will proceed with a left first metatarsophalangeal joint injection today with fluoroscopic guidance. Risk were discussed including not limited to bleeding infection possibility of intravascular injection sequelae spread local anesthetic and numbness supposed to fluoroscopy side effects steroid medication portals regarding pain control. Patient understands wished to proceed. Patient will return to clinic in approximately 2 weeks for follow-up, was counseled as to return appointment activity level and side effects to be aware of. Medication Injected: Med Injected: Under sterile prep and drape patient in supine position using C-arm fluoroscopic guidance patient's left foot was visualized in the first metatarsophalangeal joint was identified using a 25-gauge needle was entered under direct fluoroscopic visualization and after negative aspiration, 0.5 cc of contrast was injected with good local spread without washout. At this time solution of 2 cc 0.25% bupivacaine and 80 mg Depo-Medrol was then injected into the metatars ophalangeal joint. Patient tolerated the procedure well and had no complications. Condition at Discharge: Condition at Discharge: Condition at discharge stable, patient alert the procedure well and had no complications. RANDELL HASTINGS MD May 13, 2021 14:40
== END | disposition home or self-care (01) ==
LOC: PNCL 13:58
PROVIDERS: ATTEND Anesthesiology
DX: M19.072 Primary osteoarthritis, left ankle and foot (principal); M21.612 Bunion of left foot; M51.16 Intervertebral disc disorders with radiculopathy, lumbar region; M50.10 Cervical disc disorder with radiculopathy, unspecified cervical region; I11.0 Hypertensive heart disease with heart failure; I50.9 Heart failure, unspecified; E78.00 Pure hypercholesterolemia, unspecified; E66.9 Obesity, unspecified; M19.90 Unspecified osteoarthritis, unspecified site; M10.9 Gout, unspecified; F41.9 Anxiety disorder, unspecified; F32.9 Major depressive disorder, single episode, unspecified; Z79.82 Long term (current) use of aspirin; Z79.899 Other long term (current) drug therapy; Z98.890 Other specified postprocedural states; Z87.891 Personal history of nicotine dependence; Z72.89 Other problems related to lifestyle; Z82.49 Family history of ischemic heart disease and other diseases of the circulatory system; Z83.3 Family history of diabetes mellitus
CPT/HCPCS: 20600; 77002

== ENCOUNTER → 2021-07-21 | Outpatient (CLI) | payer OTHER ==
--- NOTE | 2021-07-21 15:55 | KCIC ---
EXAM: MRI LEFT SHOULDER WITHOUT CONTRAST INDICATION: Chronic left shoulder pain, surgery in 2019 COMPARISON: MRI left shoulder 08/16/2019 TECHNIQUE: Multiplanar, multisequence imaging of the LEFT shoulder without contrast. FINDINGS: Exam is limited by motion artifact. ROTATOR CUFF: There are surgical changes of rotator cuff repair. There is no large recurrent rotator cuff tear. The supraspinatus and infraspinatus tendons are mildly irregular with some thinning and sc attered increased signal, which may be the postoperative appearance of the tendon. There is tendinopa thy of the subscapularis tendon without definite tear. Teres minor tendon is intact. No significant m uscle atrophy or edema. LABRUM: Diffuse labral degeneration, unchanged. BICEPS TENDON: Not visualized, likely sequela of biceps tenotomy or chronic complete tear. ACROMIOCLAVICULAR JOINT: Moderate acromioclavicular degenerative joint disease with a ganglion cyst e xtending superiorly from the joint, slightly increased. GLENOHUMERAL JOINT: There is cartilage loss along the anterior glenoid and scattered along the estee l head, greatest anteriorly and medially. There are subchondral cysts in the glenoid. Artifact in the humeral head from suture anchors. No acute fracture. Alignment is normal. OTHER: Small amount of fluid in the joint. IMPRESSION: 1. Surgical changes of rotator cuff repair. No definite recurrent full-thickness tear. There is thinn ing and irregularity of the supraspinatus and infraspinatus tendons, which may be the postoperative a ppearance of the tendon. The far anterior supraspinatus tendon fibers are particularly difficult to v isualize, partially due to artifact. Correlate with operative report. 2. Nonvisualized biceps tendon, likely sequela tenotomy or chronic complete tear. Unchanged diffuse l abral degeneration. 3. Moderate degenerative joint disease of the acromioclavicular joint with an increased, small gangli on cyst extending superiorly from the joint. 4. Mild glenohumeral cartilage loss. EXAM: MRI RIGHT SHOULDER WITHOUT CONTRAST INDICATION: Right shoulder pain and limited range of motion COMPARISON: None TECHNIQUE: Multiplanar, multisequence imaging of the RIGHT shoulder without contrast. FINDINGS: ROTATOR CUFF: There is moderate supraspinatus and infraspinatus tendinopathy There is high-grade part ial thickness tear of the mid supraspinatus tendon at the footprint with possible extension to the ar ticular surface versus minimal thin intact articular sided fibers (image 11, series 6). Far anteriorl y and distally, there may be extension to the bursal surface versus thin intact bursal sided fibers ( image 9, series 6). No retraction. There is tendinopathy of the subscapularis tendon without definite tear. The teres minor tendon is intact. No significant muscle atrophy or edema. LABRUM: Diffuse degenerative labral tearing. BICEPS TENDON: Mild intra-articular biceps tendinopathy. ACROMIOCLAVICULAR JOINT: There is moderate acromioclavicular degenerative joint disease. Type II acro mion. GLENOHUMERAL JOINT: There is widespread full-thickness cartilage loss along the humeral head and isamar oid with subchondral cysts and marrow edema. There are humeral head osteophytes. No acute fracture. A lignment is normal. OTHER: Small joint effusion. Small amount of fluid in the subacromial-subdeltoid bursa. IMPRESSION: 1. Severe glenohumeral degenerative joint disease with widespread full-thickness cartilage loss. 2. Moderate supraspinatus and infraspinatus tendinopathy. There is high-grade partial thickness tear of the supraspinatus tendon at the footprint with thin if any intact articular and bursal sided fiber s in areas, as described. 3. Diffuse degenerative labral tearing. Mild biceps tendinopathy. 4. Moderate acromioclavicular degenerative joint disease. 5. Mild subacromial-subdeltoid bursitis. Electronically signed by: Ericka Mitchell MD (07/21/2021 3:52 PM) [id number]
== END ==
LOC: KCIC MRI 09:02
PROVIDERS: ATTEND Family Medicine
DX: M19.012 Primary osteoarthritis, left shoulder (principal); M19.011 Primary osteoarthritis, right shoulder; M75.51 Bursitis of right shoulder
CPT/HCPCS: 73221